=== PATIENT | female | born 1985 | race Caucasian/White ===

== ENCOUNTER 2018-08-20 13:38 | Emergency (ER) | payer OTHER, MEDICAID, SELFPAY ==
[2018-08-20] VITALS (55 sets, daily range): BP systolic 95–149; BP diastolic 55–95; PULSE 63–130; RESP 14–41; TEMP 36.7–36.8; O2SAT 95–100
[2018-08-20] MEDS: Normal Saline 1,000 ML 1000 ML IV ×2 (13:48→14:28)
[2018-08-20] MEDS: methylPREDNISolone SUCC 125 MG VIAL IVP (13:48)
[2018-08-20] MEDS: diphenhydrAMINE 50 MG/ML VIAL IVP (13:48)
--- NOTE | 2018-08-20 13:53 | DI.RAD_ITS ---
SYMPTOMS/DIAGNOSIS: ACUTE ONSET OF SHORTNESS OF BREATH CHEST X-RAY, PA AND LATERAL: Comparison is 07/22/16. The heart is normal in size. The lungs are clear. The mediastinal structures and pleura appear intact. IMPRESSION: Normal chest.
--- NOTE | 2018-08-20 13:56 | ED.GENADUL_ITS ---
Discharge Plan Disposition Patient Disposition: HOME Condition: Improving Discharge Details Chief Complaint: Allergic Clinical Impression: Acute anaphylaxis Primary Care Provider: Candelaria Harden ED Provider: Sherif Jiménez Home Meds and New Rx's Prescriptions: New epinephrine [EpiPen 2-Benny] 0.3 mg/0.3 mL auto-injector 0.3 mg IM ONCE Qty: 2 RF: 0 No Action ibuprofen 800 MG tablet 800 mg PO TID PRN (Reason: Pain Or Fever) Qty: 30 RF: 0 Discharge Instructions Instructions: General Allergic Reaction (ED) Additional Instructions: Please f/u with your PCP in the next two weeks for evaluation of possible allergies and post ED visit for anaphylactic reaction to Aleve. Stand Alone Forms: Work Release Referrals: Candelaria Harden [Primary Care Provider] - 2 weeks Medical Decision Making Will initiate anaphylaxis protocol and add cardiac panel, UA, chest x-ray and UDS. Pt feeling much better after the medications. Resting comfortably with at bedside. Labs consistent with allergic reaction. Negative Trop. Pt monitored all after noon over four hrs. Second trop unchanged. Patient reports feeling much better. I apprised her of the lab work, chest x-ray and negative trops. Advised to f/u with PCP to evaluate causes of anaphylaxis. I advised no more Aleve as this is suspect causes of todays event. I prescribed her Epipen. Advised to return to ED if symptoms return or worsen. Imaging Data Radiologic Study: Imaging: X-Ray My impression: No acute pathology Radiologist's impression: No acute findings. Lab Data Lab results narrative: Lab reviewed by myself. Abnormalities noted consistent with Anaphylaxis. No acute intervention required. ECG Data Interpretation: Reviewed by Dr. Gonzales and I. Sinus tachy cardia with flipped T' s. No acute ST changes. HPI General Mode of arrival: ambulatory . Date/Time Provider Initiated Documentation: 08/20/18 13:51 . Limitations to Documentation: no limitations . Information obtained by: patient and family () . History of Present Illness 32 year old F presents to the emergency department with the chief complaint of Allergic reaction, HPI Narrative: 32 y/o female here with c/o anaphylaxis reaction to Aleve. [employer] she took an Aleve for CLEARY on her way home from [facility]. Almost immediately she felt itchiness in her hands. By the time she got to [place] she noticed hives on her arms and felt sob, itchy, and began sweating. Her stated he brought her directly here and she vomited all the way here. She denies any allergies other than pineapple. She has taken Aleve in the past without complications. She had a bagel this morning and nothing else. Related Data Home Medications Medication Instructions Recorded Confirmed ibuprofen 800 mg PO TID PRN #30 tablet 01/05/16 07/31/17 epinephrine [EpiPen 2-Benny] 0.3 mg IM ONCE #2 each 08/20/18 Previous Rx's Medication Instructions Recorded ibuprofen 800 mg PO TID PRN #30 tablet 01/05/16 epinephrine [EpiPen 2-Benny] 0.3 mg IM ONCE #2 each 08/20/18 Allergies Allergy/AdvReac Type Severity Reaction Status Date / Time No Known Drug Allergies Allergy Unknown none Unverified 07/31/17 15:52 pineapple AdvReac Unverified 07/31/17 15:52 General Stated Complaint: Allergic HALEY: 2 Review of Systems Eyes Reports system reviewed and no additional complaints, except as docu ENT Reports throat swelling Cardiovascular Reports system reviewed and no additional complaints, except as docu Respiratory Reports wheezing and Reports other (SOB) Gastrointestinal Reports nausea and Reports vomiting Integumentary/Breasts Reports other (Hives) Allergic/Immunologic Reports urticaria, Reports throat swelling and Reports wheezing PFSH Medical History GDM, class A2 Post- depression Social History Smoking/Tobacco Use Status: Former Tobacco Use Surgical History Cervical Procedure (~2006) section (01/17/05) Cholecystectomy (07/22/16) Ligation of fallopian tube (07/10/15) Exam Const General: cooperative, acute distress mild, anxious and diaphoretic Nutritional Appearance: well nourished Orientation: alert, awake and oriented x3 HENMT Head: normal to inspection Ears: hearing grossly normal bilaterally, external ears normal and TM's normal bilaterally General nose exam: external nose normal and nares normal Face and sinus: normal facial exam and other (pale) Mouth: oral mucosae normal, lip normal, tongue normal, oropharynx normal and moist mucous membranes Teeth and gingiva: dentition normal Throat: posterior oropharynx normal Eyes General: appearance normal, both eyes and all related structures Pupils: PERRL EOM: EOM intact bilaterally Neck Neck: normal visual inspection, full ROM and no lymphadenopathy Resp Effort & Inspection: normal respiratory effort Auscultation: clear to auscultation bilaterally Cardio Rate: tachycardic Rhythm: regular rhythm GI Inspection: normal to inspection Palpation: soft and nontender Auscultation: normal bowel sounds Back/Spine/Pelvis Back: no CVA tenderness and No back tenderness Skin General skin exam: no rashes or lesions noted Neuro General: alert, awake and oriented x3 Extrem General: normal to inspection, full ROM and normal capillary refill Psych Appearance: grossly normal Mood: congruent mood Affect: normal affect Attitude: cooperative Thought Process: normal Thought Content: normal Insight: insight good Judgment: judgment good Course Vital Signs Temperature 36.8 C 08/20/18 13:51 Pulse 130 H 08/20/18 13:51 Respiratory Rate 30 H 08/20/18 13:51 Blood Pressure 135/80 08/20/18 13:51 Pulse Oximetry 96 08/20/18 13:51 Temperature 36.8 C 08/20/18 13:51 Temperature Source Temporal Artery Scan 08/20/18 13:51 Pulse 130 H 08/20/18 13:51 Respiratory Rate 30 H 08/20/18 13:51 Blood Pressure 135/80 08/20/18 13:51 Blood Pressure Position Supine 08/20/18 13:51 Pulse Oximetry 96 08/20/18 13:51 Oxygen Delivery Method Room Air 08/20/18 13:51 Oxygen Flow Rate 0 08/20/18 13:51
[2018-08-20 14:18] LABS: HCT 45.6 % (36.0-46.0); HGB 15.5 g/dL (12.0-15.5); Mean Corpuscular Hemoglobin 29.6 pg (27.0-33.0); Mean Corpuscular Volume 87.2 fL (80-95); Mean Platelet Volume 10.9 fL (8.0-11.0); Platelet Count 374 x1000/uL (130-400); RBC 5.23 m/cumm (4.00-5.20); RBC Distribution Width 13.4 % (11.7-14.6); White Blood Cell Count 13.03 k/cumm (4.4-10.8)
[2018-08-20 14:36] LABS: ALT 24 U/L (12-78); AST 14 U/L (15-37); Albumin 3.9 g/dL (3.4-5.0); Alkaline Phosphatase 94 U/L (46-116); Anion Gap 16.9 mmol/L (3-11); BUN 12 mg/dL (7-18); Bilirubin, Total 0.5 mg/dL (0.2-1.0); CO2 17.1 mmol/L (21.0-32.0); CREATININE 1.05 mg/dL (0.55-1.02); Calcium 9.3 mg/dL (8.5-10.1); Chloride 102 mmol/L (98-107); Glucose 138 mg/dL (70-100); Magnesium 1.8 mg/dL (1.8-2.4); Potassium 3.8 mmol/L (3.5-5.1); Sodium 136 mmol/L (136-145); Total Protein 7.5 g/dL (6.4-8.2); Troponin I < 0.02 ng/mL (0.00-0.06)
--- NOTE | 2018-08-20 14:36 | NUR.NOTE ---
Provider notified. Pt states discoloration to the hands Nursing Note:
[2018-08-20 14:46] LABS: Absolute Lymphocyte Count 4.95 k/cumm (1.2-3.4); Absolute Monocyte Count 0.26 k/cumm (0.11-0.7); Absolute Neutrophil Count 7.82 k/cumm (1.2-6.7); Atypical Lymphocytes % 7
[2018-08-20 14:47] LABS: Diff Comment Manual Differential; RBC Morphology Normal
--- NOTE | 2018-08-20 15:28 | DI.VRAD_ITS ---
EXAM: XR Chest, 2 Views EXAM DATE/TIME: 08/20/2018 1:55 PM CLINICAL HISTORY: 32 years old, female; Signs and symptoms; Shortness of breath; Patient HX: Acute onset of SOB TECHNIQUE: XR of the chest, 2 views. COMPARISON: CR CHEST 2 VIEWS PA,LAT 07/22/2016 12:19 PM FINDINGS: Lungs: Unremarkable. No consolidation. Pleural space: Unremarkable. No pleural effusion. No pneumothorax. Heart/Mediastinum: Unremarkable. No cardiomegaly. Bones/joints: Unremarkable. IMPRESSION: No acute findings. Dictated and Authenticated by: Aileen Rogers MD. Ordering:NICOLA MACEDO MD
[2018-08-20 17:33] LABS: Bilirubin Negative (Negative); Blood Negative (Negative); Clarity Clear; Glucose 500 mg/dL (Negative); Ketones Trace mg/dL (Negative); Leukocyte Esterase Negative (Negative); Nitrite Negative (Negative); Urobilinogen 0.2 EU/dL (Up TO 0.2)
[2018-08-20 17:36] LABS: *AMPHETAMINES SCREEN URINE Negative (Negative); *BARBITURATES SCREEN URINE Negative (Negative); *BENZODIAZEPINES SCREEN URINE Negative (Negative); Cannabinoids THC Negative (Negative); Cocaine Screen,Urine Negative (Negative); METHADONE URINE SCREEN Negative (Negative); OPIATES URINE SCREEN Negative (Negative)
[2018-08-20 17:43] LABS: Tricyclic Antidepressants Negative (Negative)
[2018-08-20 18:35] LABS: Troponin I < 0.02 ng/mL (0.00-0.06)
--- NOTE | 2018-08-21 09:43 | NUR.NOTE ---
Nursing Note: Patient called stating that this morning her face has become very red and that she is getting hives on her cheeks. She wanted to know if she should return. Per the note in the chart it stated if symptoms return or get worse return. She was informed of this and stated she would return. Nel Zabala.
== END 2018-08-20 19:36 | disposition home or self-care (01) ==
PROVIDERS: Emergency Provider Nurse Practitioner Family; PCP Nurse Practitioner
DX: T88.6XXA Anaphylactic reaction due to adverse effect of correct drug or medicament properly administered, initial encounter (principal); T39.315A Adverse effect of propionic acid derivatives, initial encounter; R00.0 Tachycardia, unspecified
CPT/HCPCS: 36415; 80053; 80307; 93005; 96361; 96372; 96374; 96375; 99285; 71046; 81003; 83735; 84484; 85025; 93010; J0171; J2930

== ENCOUNTER 2018-08-21 10:32 | Emergency (ER) | payer OTHER, MEDICAID, SELFPAY ==
[2018-08-21] VITALS (20 sets, daily range): BP systolic 108–132; BP diastolic 71–87; PULSE 69–93; RESP 16–24; TEMP 36.4; O2SAT 97–100
--- NOTE | 2018-08-21 11:10 | W.ED.GENAD ---
Discharge Plan Disposition Patient Disposition: HOME Condition: Stable Discharge Details Chief Complaint: Allergic Clinical Impression: Allergic reaction Primary Care Provider: Candelaria Harden ED Provider: Faiza Allison Home Meds and New Rx's Prescriptions: New prednisone 50 mg tablet 50 mg PO DAILY Qty: 3 RF: 0 Continue ibuprofen 800 MG tablet 800 mg PO TID PRN (Reason: Pain Or Fever) Qty: 30 RF: 0 epinephrine [EpiPen 2-Benny] 0.3 mg/0.3 mL auto-injector 0.3 mg IM ONCE Qty: 2 RF: 0 Discharge Instructions Instructions: Prednisone (By mouth), General Allergic Reaction (ED) Additional Instructions: Please return immediately to the emergency department if you develop any new or worsening symptoms or if you become otherwise concerned. It is extremely important that you make an appointment to be seen by your primary care doctor within the next 1-2 weeks and follow-up for this visit. Referrals: Candelaria Harden [Primary Care Provider] - Discharge Data Discharge Date/Time-TO BE ENTERED AT DEPARTURE: 08/21/18 13:35 Medical Decision Making Nellie Calle is a 32-year-old woman without history of major medical problems who was seen in the emergency department yesterday for anaphylactic reaction, presumably to Aleve, now returning to the emergency department with recurrence of throat tightness this morning. Benign exam. Patient is well and nontoxic-appearing, the oropharynx is normal without edema, and lungs are clear to auscultation bilaterally. Concern for possible rebound allergic reaction as steroid dosing wears off. Plan for IV Benadryl, Pepcid, Solu-Medrol, saline, telemetry. Will monitor. Pt reassessed. Reports that she feels much better after meds, back to baseline without throat tightness or tongue symptoms. Plan for Rx prednisone. Lengthy discussion with Pt re: RTED precautions, epipen use, and importance of outpt f/u with PCP. She is amenable to the plan. Medical Records Medical records reviewed: Yes I reviewed the patient's medical records. HPI General Mode of arrival: ambulatory. Date/Time Provider Initiated Documentation: 08/21/18 10:52. Limitations to Documentation: no limitations. Information obtained by: patient, RN notes reviewed and old records reviewed. HPI Narrative: Nellie Calle is a 32-year-old woman without reported major medical problems presenting to the emergency department with throat tightness after allergic reaction yesterday. Patient reports that she was seen here yesterday for allergic reaction. She reports that she had throat tightness difficulty breathing and vomiting along with hives and itching after taking Aleve 30 minutes prior to onset of symptoms. She received IM epi, IV steroids, Benadryl, and was watched in the emergency department for 4 hours. She was not discharged home with p.o. prednisone. Patient reports that this morning, around 630 she noticed that her throat seemed somewhat tight, after having complete resolution of symptoms yesterday in the emergency department. She also noticed mild hives under her eyes bilaterally. Patient reports that her throat tightness has not changed since onset this morning, although the hives around her eyes have resolved. Patient reports as we are speaking that the left side of her tongue also is starting to feel tingly. She denies swelling, shortness of breath, nausea/vomiting. No recent illnesses. Was in her usual state of health other than being tired after discharge from the emergency department last night. Has not eaten this morning. Related Data Home Medications Medication Instructions Recorded Confirmed ibuprofen 800 mg PO TID PRN #30 tablet 01/05/16 08/21/18 epinephrine [EpiPen 2-Benny] 0.3 mg IM ONCE #2 each 08/20/18 08/21/18 prednisone 50 mg PO DAILY #3 tab 08/21/18 Previous Rx's Medication Instructions Recorded ibuprofen 800 mg PO TID PRN #30 tablet 01/05/16 epinephrine [EpiPen 2-Benny] 0.3 mg IM ONCE #2 each 08/20/18 prednisone 50 mg PO DAILY #3 tab 08/21/18 Allergies Allergy/AdvReac Type Severity Reaction Status Date / Time No Known Drug Allergies Allergy Unknown none Unverified 07/31/17 15:52 naproxen [From Aleve] Allergy Unverified 08/21/18 10:43 pineapple AdvReac Unverified 07/31/17 15:52 aleve Allergy Uncoded 08/21/18 10:43 General Stated Complaint: Allergic HALEY: 4 Review of Systems Review of Systems Constitutional: denies fevers Eyes: denies eye pain ENT: denies facial pain, dental pain, sore throat, reports throat tightness and tongue tingling Cardiovascular: denies chest pain, edema Respiratory: denies SOB, cough GI: denies abdominal pain, vomiting, diarrhea : denies flank pain MSK: denies back pain, neck pain, arthralgias, myalgias Skin: denies rash Neuro: denies headaches, lightheadedness, weakness [facility] Medical History GDM, class A2 Post- depression Social History Smoking/Tobacco Use Status: Former Tobacco Use Surgical History Cervical Procedure (~2006) section (01/17/05) Cholecystectomy (07/22/16) Ligation of fallopian tube (07/10/15) Exam Narrative Exam Narrative: Constitutional: well and [id number], pleasant, conversing normally HENT: head atraumatic, normocephalic normal inspection, mucous membranes moist, normal oropharynx without apparent edema Eyes: conjunctiva normal, sclera normal, pupils 3mm b/l Neck: no stridor, normal ROM, trachea midline Chest: normal inspection Resp: normal work of breathing, LCTAB Cardio: normal rate, normal rhythm, no murmur appreciated Back: normal inspection, no rash Skin: warm, dry, normal color, no rash Neuro: alert, not altered, grossly non-focal, normal tone Ext: no edema Psych: normal mood, normal affect, normal behavior Course Vital Signs Temperature 36.4 C L 08/21/18 10:40 Pulse 93 H 08/21/18 10:40 Respiratory Rate 16 08/21/18 10:40 Blood Pressure 118/81 08/21/18 10:40 Pulse Oximetry 100 08/21/18 10:40 Temperature 36.4 C L 08/21/18 10:40 Temperature Source Skin 08/21/18 10:40 Pulse 93 H 08/21/18 10:40 Respiratory Rate 16 08/21/18 10:40 Respiratory Effort Non-Labored 08/21/18 10:44 Respiratory Pattern Normal 08/21/18 10:44 Blood Pressure 118/81 08/21/18 10:40 Blood Pressure Position Sitting 08/21/18 10:40 Pulse Oximetry 100 08/21/18 10:40 Oxygen Delivery Method Room Air 08/21/18 10:40 Oxygen Flow Rate 0 08/21/18 10:40 Pain Level 3 08/21/18 10:40
[2018-08-21] MEDS: Normal Saline 1,000 ML 1000 ML IV (11:20)
[2018-08-21] MEDS: methylPREDNISolone SUCC 125 MG VIAL IVP (11:20)
[2018-08-21] MEDS: Famotidine 20 MG/2 ML VIAL IV (11:35)
[2018-08-21] MEDS: diphenhydrAMINE 50 MG/ML VIAL IVP (11:55)
--- NOTE | 2018-08-21 11:58 | ED.GENADUL_ITS ---
Discharge Plan Disposition Patient Disposition: HOME Condition: Stable Discharge Details Chief Complaint: Allergic Clinical Impression: Allergic reaction Primary Care Provider: Candelaria Harden ED Provider: Faiza Allison Home Meds and New Rx's Prescriptions: New prednisone 50 mg tablet 50 mg PO DAILY Qty: 3 RF: 0 Continue ibuprofen 800 MG tablet 800 mg PO TID PRN (Reason: Pain Or Fever) Qty: 30 RF: 0 epinephrine [EpiPen 2-Benny] 0.3 mg/0.3 mL auto-injector 0.3 mg IM ONCE Qty: 2 RF: 0 Discharge Instructions Instructions: Prednisone (By mouth), General Allergic Reaction (ED) Additional Instructions: Please return immediately to the emergency department if you develop any new or worsening symptoms or if you become otherwise concerned. It is extremely important that you make an appointment to be seen by your primary care doctor within the next 1-2 weeks and follow-up for this visit. Referrals: Candelaria Harden [Primary Care Provider] - Discharge Data Discharge Date/Time-TO BE ENTERED AT DEPARTURE: 08/21/18 13:35 Medical Decision Making Nellie Calle is a 32-year-old woman without history of major medical problems who was seen in the emergency department yesterday for anaphylactic reaction, presumably to Aleve, now returning to the emergency department with recurrence of throat tightness this morning. Benign exam. Patient is well and nontoxic- appearing, the oropharynx is normal without edema, and lungs are clear to auscultation bilaterally. Concern for possible rebound allergic reaction as steroid dosing wears off. Plan for IV Benadryl, Pepcid, Solu-Medrol, saline, telemetry. Will monitor. Pt reassessed. Reports that she feels much better after meds, back to baseline without throat tightness or tongue symptoms. Plan for Rx prednisone. Lengthy discussion with Pt re: RTED precautions, epipen use, and importance of outpt f/ u with PCP. She is amenable to the plan. Medical Records Medical records reviewed: Yes I reviewed the patient's medical records. HPI General Mode of arrival: ambulatory . Date/Time Provider Initiated Documentation: 08/21/18 10:52 . Limitations to Documentation: no limitations . Information obtained by: patient, RN notes reviewed and old records reviewed . HPI Narrative: Nellie Calle is a 32-year-old woman without reported major medical problems presenting to the emergency department with throat tightness after allergic reaction yesterday. Patient reports that she was seen here yesterday for allergic reaction. She reports that she had throat tightness difficulty breathing and vomiting along with hives and itching after taking Aleve 30 minutes prior to onset of symptoms. She received IM epi, IV steroids, Benadryl, and was watched in the emergency department for 4 hours. She was not discharged home with p.o. prednisone. Patient reports that this morning, around 630 she noticed that her throat seemed somewhat tight, after having complete resolution of symptoms yesterday in the emergency department. She also noticed mild hives under her eyes bilaterally. Patient reports that her throat tightness has not changed since onset this morning, although the hives around her eyes have resolved. Patient reports as we are speaking that the left side of her tongue also is starting to feel tingly. She denies swelling, shortness of breath, nausea/vomiting. No recent illnesses. Was in her usual state of health other than being tired after discharge from the emergency department last night. Has not eaten this morning. Related Data Home Medications Medication Instructions Recorded Confirmed ibuprofen 800 mg PO TID PRN #30 tablet 01/05/16 08/21/18 epinephrine [EpiPen 2-Benny] 0.3 mg IM ONCE #2 each 08/20/18 08/21/18 prednisone 50 mg PO DAILY #3 tab 08/21/18 Previous Rx's Medication Instructions Recorded ibuprofen 800 mg PO TID PRN #30 tablet 01/05/16 epinephrine [EpiPen 2-Benny] 0.3 mg IM ONCE #2 each 08/20/18 prednisone 50 mg PO DAILY #3 tab 08/21/18 Allergies Allergy/AdvReac Type Severity Reaction Status Date / Time No Known Drug Allergies Allergy Unknown none Unverified 07/31/17 15:52 naproxen [From Aleve] Allergy Unverified 08/21/18 10:43 pineapple AdvReac Unverified 07/31/17 15:52 aleve Allergy Uncoded 08/21/18 10:43 General Stated Complaint: Allergic HALEY: 4 Review of Systems Review of Systems Constitutional: denies fevers Eyes: denies eye pain ENT: denies facial pain, dental pain, sore throat, reports throat tightness and tongue tingling Cardiovascular: denies chest pain, edema Respiratory: denies SOB, cough GI: denies abdominal pain, vomiting, diarrhea : denies flank pain MSK: denies back pain, neck pain, arthralgias, myalgias Skin: denies rash Neuro: denies headaches, lightheadedness, weakness [facility] Medical History GDM, class A2 Post- depression Social History Smoking/Tobacco Use Status: Former Tobacco Use Surgical History Cervical Procedure (~2006) section (01/17/05) Cholecystectomy (07/22/16) Ligation of fallopian tube (07/10/15) Exam Narrative Exam Narrative: Constitutional: well and [id number]-nyqyzjmuv, pleasant, conversing normally HENT: head atraumatic, normocephalic normal inspection, mucous membranes moist, normal oropharynx without apparent edema Eyes: conjunctiva normal, sclera normal, pupils 3mm b/l Neck: no stridor, normal ROM, trachea midline Chest: normal inspection Resp: normal work of breathing, LCTAB Cardio: normal rate, normal rhythm, no murmur appreciated Back: normal inspection, no rash Skin: warm, dry, normal color, no rash Neuro: alert, not altered, grossly non-focal, normal tone Ext: no edema Psych: normal mood, normal affect, normal behavior Course Vital Signs Temperature 36.4 C L 08/21/18 10:40 Pulse 93 H 08/21/18 10:40 Respiratory Rate 16 08/21/18 10:40 Blood Pressure 118/81 08/21/18 10:40 Pulse Oximetry 100 08/21/18 10:40 Temperature 36.4 C L 08/21/18 10:40 Temperature Source Skin 08/21/18 10:40 Pulse 93 H 08/21/18 10:40 Respiratory Rate 16 08/21/18 10:40 Respiratory Effort Non-Labored 08/21/18 10:44 Respiratory Pattern Normal 08/21/18 10:44 Blood Pressure 118/81 08/21/18 10:40 Blood Pressure Position Sitting 08/21/18 10:40 Pulse Oximetry 100 08/21/18 10:40 Oxygen Delivery Method Room Air 08/21/18 10:40 Oxygen Flow Rate 0 08/21/18 10:40 Pain Level 3 08/21/18 10:40
== END 2018-08-21 13:35 | disposition home or self-care (01) ==
PROVIDERS: Emergency Provider Student in an Organized Health Care Education/Training Program; PCP Nurse Practitioner
DX: R09.89 Other specified symptoms and signs involving the circulatory and respiratory systems (principal); L50.0 Allergic urticaria; T39.315A Adverse effect of propionic acid derivatives, initial encounter
CPT/HCPCS: 96361; 96374; 96375; 99284; J1200; J2930

== ENCOUNTER 2018-10-02 18:08 | Outpatient (REF) | payer MEDICAID, SELFPAY ==
--- NOTE | 2018-10-02 15:40 | PAPFT_PTH ---
PATIENT: Nellie Calle LOC: [facility] U#:[id number] AGE/SX: 33/F ROOM: RE10/02/[address]: Lizbeth Ortiz : 1985 BED: DIS: 10/02/2018 SPEC #: [id number] RECD: 10/02/18 18:30 STATUS: ANTONIOCheryl REQ #: [id number] CANDICE: 10/02/18 15:[address]: Lizbeth Ortiz [facility]PT[facility] Cytology RECD BY: Geetha Johnson ENTERED: 10/02/18 18:31 SP TYPE: PAPFT OTHR DR: Candelaria Harden Tissues: 1 - CX/ENDOCX FOR PAP SMEARS Procedures: PAP THIN PREP/[facility] Screening HPV DNA PROBE Comments: [id number]
[2018-10-04 15:18] LABS: Chlamydia Result Negative; GC Result Negative; Specimen Description CERVIX
== END 2018-10-02 18:28 ==
LOC: LBN 18:08
PROVIDERS: PCP Nurse Practitioner; Visit Provider Obstetrics & Gynecology Gynecology
DX: Z11.3 Encounter for screening for infections with a predominantly sexual mode of transmission (principal); Z12.4 Encounter for screening for malignant neoplasm of cervix; Z11.51 Encounter for screening for human papillomavirus (HPV)
CPT/HCPCS: 87491; 87591; 88142; 87624

== ENCOUNTER 2018-11-30 16:35 | Outpatient (REF) | payer OTHER, MEDICAID, SELFPAY ==
--- NOTE | 2018-11-30 14:20 | ENDO_PTH ---
PATIENT: Nellie Calle LOC: [facility] U#:[id number] AGE/SX: 33/F ROOM: RE11/30/[address]: Lizbeth Ortiz : 1985 BED: DIS: 11/30/2018 SPEC #: [id number] RECD: 11/30/18 17:59 STATUS: BENOIT REYamileth #: [id number] CANDICE: 11/30/18 14:[address]: Lizbeth Ortiz DEPT: Surgical Specimen RECD BY: Geetha Johnson ENTERED: 11/30/18 18:00 SP TYPE: Endo OTHR DR: Candelaria Harden Tissues: 1 - ENDOCERVICAL BX/CURRETTE Procedures: GROSS AND MICRO LEVEL 4 Comments: [id number]
== END 2018-11-30 16:55 ==
LOC: LBN 16:35
PROVIDERS: PCP Nurse Practitioner; Visit Provider Obstetrics & Gynecology Gynecology
DX: N87.0 Mild cervical dysplasia (principal); R87.612 Low grade squamous intraepithelial lesion on cytologic smear of cervix (LGSIL); B97.7 Papillomavirus as the cause of diseases classified elsewhere
CPT/HCPCS: 88305

== ENCOUNTER 2020-04-27 17:17 | Emergency (ER) | payer OTHER, MEDICAID, SELFPAY ==
[2020-04-27 17:23] VITALS: BP 131/97; PULSE 87; RESP 18; TEMP 36.2; O2SAT 99
--- NOTE | 2020-04-27 17:27 | ED.GENADUL_ITS ---
Discharge Plan Disposition Patient Disposition: HOME Condition: Fair Discharge Details Chief Complaint: DentalOral Clinical Impression: Dental infection Primary Care Provider: Candelaria Harden ED Provider: Anne Muro Home Meds and New Rx's Prescriptions: New penicillin V potassium 500 mg tablet 500 mg PO QID Qty: 40 RF: 0 Continued epinephrine [EpiPen 2-Benny] 0.3 mg/0.3 mL auto-injector 0.3 mg IM ONCE Qty: 2 RF: 0 Discharge Instructions Instructions: Dental Abscess (ED) Additional Instructions: Gargle with salt water 3-4 times daily. 1 quart of warm water with 1 teaspoon of salt Can use [id number] acetaminophen and/or ibuprofen as directed, you can alternate the 2 every 3 hours. Please contact your dentist first thing Tuesday morning for follow-up appointment as soon as possible Referrals: Candelaria Harden [Primary Care Provider] - Medical Decision Making Patient presents with symptoms consistent with dental infection. There is no fluctuant area that appears reasonable for I&D. Posterior pharynx and TM both clear. We will treat with penicillin and will refer to dentist who she states she contacted on Tuesday. HPI General Date/Time Provider Initiated Documentation: 04/27/20 17:27 . Limitations to Documentation: no limitations . Information obtained by: patient . History of Present Illness described as severe, with intensity rated at 10. Quality is described as aching and sharp, and is localized to the mouth (left lower dental). Patient started experiencing this day(s) (3) and it has been constant. No relieving factors improve symptom(s), Eating worsens symptoms . Patient notes no other symptoms.. Patient did receive the following treatments prior to arrival, NSAID Related Data Home Medications Medication Instructions Recorded Confirmed epinephrine [EpiPen 2-Benny] 0.3 mg IM ONCE #2 each 08/20/18 04/27/20 penicillin V potassium 500 mg PO QID #40 tab 04/27/20 Previous Rx's Medication Instructions Recorded epinephrine [EpiPen 2-Benny] 0.3 mg IM ONCE #2 each 08/20/18 penicillin V potassium 500 mg PO QID #40 tab 04/27/20 Allergies Allergy/AdvReac Type Severity Reaction Status Date / Time No Known Drug Allergies Allergy Unknown none Unverified 11/30/18 13:58 naproxen [From Aleve] Allergy Unverified 04/27/20 17:27 pineapple AdvReac Unverified 04/27/20 17:27 aleve Allergy Uncoded 04/27/20 17:27 General Stated Complaint: DentalOral HALEY: 4 Review of Systems Constitutional Constitutional: Denies fever(s) and Reports poor appetite ENT Ears, Nose, Mouth, and Throat: Reports dental pain (left lower) Cardiovascular Cardiovascular: Denies dyspnea Respiratory Respiratory: Denies cough and Denies dyspnea Gastrointestinal Gastrointestinal: Denies nausea Hematologic/Lymphatic Hematologic/Lymphatic: Denies easy bleeding PFSH Medical History Acute calculous cholecystitis (Resolved) Acute tonsillitis (Resolved) GDM, class A2 (Resolved) 2014 Rx with Glyburide. 2hr PP GTT Personal history of cervical dysplasia (Resolved 12/04/13) 2006 - CAPRI III LEEP RX. 09/2018 global directed biopsies____ Post- depression (Resolved) 08/2015 [place] PPDS 16. Rx with Busprione. anxiety (Resolved 10/01/15) pt briefly treated with Buspar. Resolved after 2mo. Declined counseling. Surgical History (Updated 10/02/18 @ 16:20 by Lizbeth Ortiz MD) Cervical Procedure (Resolved ~2006) LEEP section (Resolved 01/17/05) Arrest of dilation at 4cm F. Oxytocin augmentation. 2899gm. Single layer closure 0-Chromic. 07/10/15 Elective RCS at 38w Pt had bilateral fimbriaectomy at time of RCS. Cholecystectomy (Resolved 07/22/16) Ligation of fallopian tube (Resolved 07/10/15) bilateral fimbria removal at time of RCS. Social History (Updated 10/02/18 @ 16:29 by Lizbeth Ortiz MD) Smoking/Tobacco Use Status: Former Tobacco Use Second Hand Exposure: Yes Alcohol Intake: current Alcohol Intake frequency: a few times a month Drug use: Never Substance use type: does not use Household members: children and other Details: Nav. Dating long time friend. 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 PC/S. [place] 2014. RC/S with [employer]. [place]. Female Reproductive History Menstrual control method: permanent sterilization History History 2 Para 2 Hx # Term Pregnancies 2 Multiple births Hx # Pregnancies Ectopic pregnancies AB induced Hx Number of Living Children AB spontaneous Exam Const General: cooperative and acute distress moderate Nutritional Appearance: average body habitus Orientation: alert, awake and oriented x3 HENMT Head: normal to inspection, normocephalic and atraumatic Ears: TM normal on the left Mouth: oral mucosae normal Teeth and gingiva: dentition normal (left 18 missing, pain left 19, not fluctuant, gum red and inflamed) Throat: posterior oropharynx normal Neck Neck: lymphadenopathy (Left submandibular) Resp Effort & Inspection: normal respiratory effort Cardio Rate: regular rate Rhythm: regular rhythm Skin General skin exam: no rashes or lesions noted Neuro General: patient alert, patient awake and patient oriented x3 Extrem General: normal to inspection and full ROM Course Vital Signs Vital signs: Vital Signs Temperature 36.2 C L 04/27/20 17:23 Pulse 87 04/27/20 17:23 Respiratory Rate 18 04/27/20 17:23 Blood Pressure 131/97 H 04/27/20 17:23 Pulse Oximetry 99 04/27/20 17:23 Temperature 36.2 C L 04/27/20 17:23 Temperature Source Temporal Artery Scan 04/27/20 17:23 Pulse 87 04/27/20 17:23 Respiratory Rate 18 04/27/20 17:23 Blood Pressure 131/97 H 04/27/20 17:23 Blood Pressure Position Sitting 04/27/20 17:23 Pulse Oximetry 99 04/27/20 17:23 Oxygen Delivery Method Room Air 04/27/20 17:23 Oxygen Flow Rate 0 04/27/20 17:23 Pain Level 9 04/27/20 17:23
[2020-04-27] MEDS: Penicillin V POTASSIUM 500 MG TAB, 4 TABS/BTL PO (18:00)
[2020-04-27] MEDS: Ketorolac 30 MG/ML VIAL IM (18:00)
== END 2020-04-27 18:10 | disposition home or self-care (01) ==
PROVIDERS: Emergency Provider Nurse Practitioner Acute Care; PCP Nurse Practitioner
DX: R68.84 Jaw pain (principal); R22.0 Localized swelling, mass and lump, head; K04.7 Periapical abscess without sinus
CPT/HCPCS: 96372; 99284; 99283; J1885

== ENCOUNTER 2020-07-28 18:18 | Outpatient (REF) | payer OTHER, MEDICAID, SELFPAY ==
[2020-07-28 21:20] LABS: Abs Immature Grans 0.22 10^3/uL (0.0-0.06); Absolute Basophil Count 0.07 10^3/uL (0.0-0.2); Absolute Eosinophil Count 0.29 10^3/uL (0.0-0.7); Absolute Lymphocyte Count 4.48 10^3/uL (1.2-3.4); Absolute Monocyte Count 0.91 10^3/uL (0.1-0.8); Basophils % 0.4; Eosinophils % 1.7; HCT 46.1 % (36.0-46.0); HGB 15.4 g/dL (11.2-15.7); Immature Grans % 1.3; Lymphocytes % 26.6; MCH 30.3 pg (27.0-33.0); MCHC 33.4 % (32.0-36.0); MCV 90.7 fL (80-95); MPV 9.8 fL (8.0-11.0); Monocytes % 5.4; Neutrophils % 64.6; Nucleated RBC 0 %; Platelet Count 341 10^3/uL (130-400); RBC 5.08 10^6/uL (3.93-5.22); RDW 12.6 % (11.7-14.6); RDW-SD 41.1 fL; WBC 16.84 10^3/uL (4.4-10.8)
[2020-07-28 21:25] LABS: Absolute Neutrophil Count 10.88 10^3/uL (1.2-6.7)
[2020-07-28 22:29] LABS: ESR 10 mm/hr (0-20)
== END 2020-07-28 18:38 ==
LOC: NCHCN 18:18
PROVIDERS: PCP Nurse Practitioner
DX: M54.5 Low back pain (principal); R20.3 Hyperesthesia; R51.9 Headache, unspecified
CPT/HCPCS: 85652; 85025

== ENCOUNTER 2020-07-29 23:18 | Outpatient (CLI) | payer OTHER, MEDICAID, SELFPAY ==
--- NOTE | 2020-07-29 | DI.RAD_ITS ---
EXAM: XR THORACIC SPINE COMPLETE CLINICAL HISTORY: LOW BACK PAIN M54.5 TECHNIQUE: COMPARISON: CR XR LUMBAR SPINE COMPLETE from 07/29/2020 FINDINGS: Three views of the thoracic spine and five views of the lumbar spine were obtained. Note is made of vascular clips in the right upper quadrant consistent prior cholecystectomy. Unremarkable appearance of the vertebral bodies throughout the thoracic and lumbar region. Intervertebral disc spaces appea r well maintained. Minimal hypertrophic spurring of lumbar facet joints may be present. No evidence of spondylolysis or spondylolisthesis. The SI joints appear intact. IMPRESSION: Minimal facet degenerative changes of the lumbar spine. Otherwise unremarkable examination. RADIATION DOSE DELIVERED: Total DLP
== END 2020-07-29 23:38 ==
PROVIDERS: PCP Nurse Practitioner; Visit Provider Internal Medicine
DX: M47.816 Spondylosis without myelopathy or radiculopathy, lumbar region (principal); M54.5 Low back pain
CPT/HCPCS: 72072; 72110

== ENCOUNTER 2021-01-27 09:51 | Emergency (ER) | payer OTHER, MEDICAID, SELFPAY ==
[2021-01-27 09:59] VITALS: BP 132/81; PULSE 102; RESP 22; TEMP 36.5; O2SAT 98
--- NOTE | 2021-01-27 10:15 | DI.CT_ITS ---
EXAM: CT ABDOMEN PELVIS W INDICATION: RLQ, R SI joint pain. COMPARISON: No exams were available for comparison TECHNIQUE: FINDINGS: CT examination of the abdomen and pelvis was performed with a bolus infusion of 100 cc of Omnipaque 3 50. Images obtained through the lung bases are unremarkable. The liver is unremarkable in appearance. The gallbladder has been surgically removed. There is mild prominence of the common hepatic duct whi ch measures up to about 14 millimeters in diameter, this is slightly enlarged for post cholecystectom y patient. Please correlate clinically and with lab values to exclude extrahepatic biliary obstructi on. Pancreas appears normal. Spleen is unremarkable in appearance. Adrenals appear normal. The kidneys are unremarkable with no evidence of hydronephrosis, nephrolithiasis, or renal mass.. Ur inary bladder is nearly empty.. Abdominal aorta is of normal diameter and no major vascular abnormality is seen. No abdominal wall hernia. No abdominal or pelvic adenopathy. There is a 3.4 cm in diameter left ovarian cyst. There is moderate free pelvic fluid. Findings as d escribed may represent a ruptured or leaking ovarian cyst. [employer] structures otherwise appear intact. Urinary bladder is nearly empty. Appendix is normal. No evidence of diverticulitis or bowel obstruction. IMPRESSION: Findings suggesting leaking or ruptured 34 millimeter left ovarian cyst. Prior cholecystectomy, borderline enlarged common hepatic bile duct, please correlate clinically and with lab values. RADIATION DOSE DELIVERED: 694mGy.cm Total DLP 694mGy.cm Total DLP RADIATION OPTIMIZATION: All CT scans at this facility use at least one of these dose optimization te chniques: automated exposure control; mA and/or kV adjustment per patient size (includes targeted exa ms where dose is matched to clinical indication); or iterative reconstruction.
--- NOTE | 2021-01-27 10:18 | W.ED.GENAD ---
Discharge Plan Disposition Patient Disposition: HOME Condition: Improving Discharge Details Clinical Impression: Low back pain with right-sided sciatica, Rupture of cyst of right ovary Primary Care Provider: Vito Solorzano ED Provider: Mal Newby Home Meds and New Rx's Prescriptions: New prednisone 20 mg tablet 40 mg PO DAILY 5 Days Qty: 10 RF: 0 oxycodone-acetaminophen [Percocet] 5-325 mg tablet 1 tab PO Q6H PRN (Reason: pain) Qty: 7 RF: 0 Continued epinephrine [EpiPen 2-Benny] 0.3 mg/0.3 mL auto-injector 0.3 mg IM ONCE Qty: 2 RF: 0 amitriptyline 25 mg tablet 25 mg PO HS PRNRF: 0 gabapentin 300 mg capsule 300 mg PO HS RF: 0 Discharge Instructions Instructions: Ovarian Cyst (ED), Low Back Strain (ED) Additional Instructions: Please remove Lidoderm patch in 12 hours time, may use further patches available [id number]. Please follow-up with physical therapy. Take prednisone as prescribed. May use Percocet, as needed for breakthrough/severe pain. This medication contains Tylenol and should not be taken in addition to the Tylenol. Return to the emergency department for any acute concerns. Stand Alone Forms: Physical Therapy Referral Medical Decision Making 35-year-old female presents from home. She states that she has had 2 weeks of right low back pain, began on gabapentin 300 mg at night with minimal improvement, now notes 1 day of significant increasing discomfort and pain in the right lower quadrant of her abdomen. She is tachycardic in the pain upon arrival, no fever and normal blood pressure. She is tender in the right lower quadrant, right low back and SI joint and right lateral hip. Differential diagnosis is broad with first consideration of sciatica, must exclude a peritoneal process such as appendicitis, as well as pyelonephritis or renal colic. Patient IV access established, referred for laboratory testing, urinalysis. Patient's laboratories reveal a white count of 12, hematocrit 46, platelets 315. Chemistries reassuring, BUN 7, creatinine 1.1. AST 11, ALT 27, total bili 0.5. Urinalysis unremarkable. Patient referred for CT images which reveal a ruptured ovarian cyst. I do feel this explains her right lower quadrant abdominal pain could additionally she does appear to have presentation and exam consistent with acute sciatica. Patient was given parenteral analgesia and steroids. With this she had some improvement. Able to ambulate. I do feel she may require a small number of narcotic analgesics for home, I consented her for the use of same. Will place her on a burst of steroid and also refer for physical therapy. She is stable and improved, appropriate for outpatient management. HPI General Mode of arrival: ambulatory. Date/Time Provider Initiated Documentation: 01/27/21 09:52. Limitations to Documentation: no limitations. Information obtained by: patient. History of Present Illness 35 year old F presents to the emergency department with the chief complaint of Right lower quadrant and right back pain, described as severe, Quality is described as constant, and is localized to the back, abdomen and right. Patient distal. Patient started experiencing this day(s) and it has been constant. Rest improves symptom(s), Movement worsens symptoms . Patient notes denies chest pain, fever/chills and loss of appetite. Patient did receive the following treatments prior to arrival, other (Tylenol, gabapentin) Related Data Home Medications Medication Instructions Recorded Confirmed epinephrine [EpiPen 2-Benny] 0.3 mg IM ONCE #2 each 08/20/18 01/27/21 amitriptyline 25 mg PO HS PRN 01/27/21 01/27/21 gabapentin 300 mg PO HS 01/27/21 01/27/21 oxycodone-acetaminophen [Percocet] 1 tab PO Q6H PRN #7 tab 01/27/21 prednisone 40 mg PO DAILY 5 Days #10 tab 01/27/21 Previous Rx's Medication Instructions Recorded epinephrine [EpiPen 2-Benny] 0.3 mg IM ONCE #2 each 08/20/18 oxycodone-acetaminophen [Percocet] 1 tab PO Q6H PRN #7 tab 01/27/21 prednisone 40 mg PO DAILY 5 Days #10 tab 01/27/21 Allergies Allergy/AdvReac Type Severity Reaction Status Date / Time No Known Drug Allergies Allergy Unknown none Unverified 11/30/18 13:58 naproxen [From Aleve] Allergy Unverified 04/27/20 17:27 pineapple AdvReac Unverified 04/27/20 17:27 aleve Allergy Uncoded 04/27/20 17:27 General Stated Complaint: Nk/Back Pain HALEY: 3 Review of Systems Narrative: No change to urine, no motor weakness, increased pain with ambulation. Denies fall or injury. 6 systems reviewed and otherwise negative [facility] Medical History Acute calculous cholecystitis Acute tonsillitis GDM, class A2 2014 Rx with Glyburide. 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 09/2018 global directed biopsies____ Post- depression 08/2015 [place] PPDS 16. Rx with Busprione. anxiety (10/01/15) pt briefly treated with Buspar. Resolved after 2mo. Declined counseling. Surgical History (Updated 10/02/18 @ 16:20 by Lizbeth Ortiz MD) Cervical Procedure (~2006) LEEP section (01/17/05) Arrest of dilation at 4cm F. Oxytocin augmentation. 2899gm. Single layer closure 0-Chromic. 07/10/15 Elective RCS at 38w Pt had bilateral fimbriaectomy at time of RCS. Cholecystectomy (07/22/16) Ligation of fallopian tube (07/10/15) bilateral fimbria removal at time of RCS. Social History Smoking/Tobacco Use Status: Former Tobacco Use Second Hand Exposure: Yes Smoking risk assessment performed?: Yes Alcohol Intake: current Alcohol Intake frequency: a few times a month Drug use: Never Substance use type: does not use Household members: children and other Details: Nav. Dating long time friend. 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 Pleasant, well groomed, interactive. HEAD: Normocephalic, atraumatic ENT: Mucous membranes moist, oropharynx unremarkable, External ear exam unremarkable EYES: PERRL, EOMI NECK: Full ROM, no ANDERSON, no menigismus CHEST/RESP: Nontender, clear to auscultation bilateral, no wheeze/rhonchi/rales CARDIOVASCULAR: Regular, borderline tachycardic, no murmur, rub risa. 2+ Rad pulse bilateral ABDOMEN: Soft, tender in the right lower quadrant, no mass. +Bowel sounds Back: Tender right SI joint and right lateral hip to palpation. EXT: Full ROM, no edema, no rash. Range of motion right limited by pain. Sensation intact throughout including saddle distribution. Neuro: Grossly normal neurologic exam, conversant, interactive. Psych: Speech fluent, thoughts congruent, affect normal Course Vital Signs Vital signs: Vital Signs Temperature 36.5 C 01/27/21 09:59 Pulse 102 H 01/27/21 09:59 Respiratory Rate 22 01/27/21 09:59 Blood Pressure 132/81 01/27/21 09:59 Pulse Oximetry 98 01/27/21 09:59 Temperature 36.5 C 01/27/21 09:59 Temperature Source Skin 01/27/21 09:59 Pulse 102 H 01/27/21 09:59 Respiratory Rate 22 01/27/21 09:59 Respiratory Effort Non-Labored 01/27/21 10:06 Blood Pressure 132/81 01/27/21 09:59 Blood Pressure Position Sitting 01/27/21 09:59 Pulse Oximetry 98 01/27/21 09:59 Oxygen Delivery Method Room Air 01/27/21 09:59 Oxygen Flow Rate 0 01/27/21 09:59 Pain Level 10 01/27/21 10:06
[2021-01-27 10:29] LABS: Abs Immature Grans 0.04 10^3/uL (0.0-0.06); Absolute Basophil Count 0.05 10^3/uL (0.0-0.2); Absolute Eosinophil Count 0.23 10^3/uL (0.0-0.7); Absolute Monocyte Count 0.49 10^3/uL (0.1-0.8); Basophils % 0.4; Eosinophils % 1.9; HGB 15.5 g/dL (11.2-15.7); Immature Grans % 0.3; Lymphocytes % 19.3; MCH 29.6 pg (27.0-33.0); MCHC 33.7 % (32.0-36.0); MPV 9.6 fL (8.0-11.0); Neutrophils % 74.1; Nucleated RBC 0 %; Platelet Count 315 10^3/uL (130-400); RBC 5.23 10^6/uL (3.93-5.22); RDW 12.8 % (11.7-14.6); RDW-SD 41.3 fL; WBC 12.31 10^3/uL (4.4-10.8)
[2021-01-27] MEDS: HYDROmorphone 2 MG/ML VIAL 1 MG IVP (10:30)
[2021-01-27] MEDS: Normal Saline 1,000 ML 125 ML IV (10:30)
[2021-01-27 10:37] LABS: Absolute Lymphocyte Count 2.38 10^3/uL (1.2-3.4); Absolute Neutrophil Count 9.12 10^3/uL (1.2-6.7)
[2021-01-27 10:41] LABS: ALT 27 U/L (14-59); AST 11 U/L (15-37); Albumin 4.3 g/dL (3.4-5.0); Alkaline Phosphatase 95 U/L (46-116); Anion Gap 10.9 mmol/L (3-11); BUN 7 mg/dL (7-18); Bilirubin, Total 0.5 mg/dL (0.2-1.0); CO2 26.1 mmol/L (21.0-32.0); CREATININE 1.1 mg/dL (0.55-1.02); Calcium 9.1 mg/dL (8.5-10.1); Chloride 102 mmol/L (98-107); Glucose 150 mg/dL (74-106); Sodium 139 mmol/L (136-145); Total Protein 8.5 g/dL (6.4-8.2)
[2021-01-27 10:50] LABS: Bilirubin Negative (Negative); Blood Small (Negative); Clarity Cloudy (Clear); Glucose Negative (Negative); Ketones Negative (Negative); Leukocyte Esterase Negative (Negative); Nitrite Negative (Negative); Specific Gravity 1.025 (1.005-1.025); Urobilinogen 0.2 EU/dL (Up TO 0.2); pH 5.5 (5-8)
[2021-01-27 11:07] LABS: Bacteria Negative HPF (Negative); Epithelial Cells Many HPF (Negative); RBC Negative HPF (0-2); WBC 0-2 HPF (0-5)
[2021-01-27] MEDS: Omnipaque 350 MG/ML 100 ML BTL IJ (11:07)
[2021-01-27 11:08] LABS: C & S Indicated? No; Casts Negative LPF (Negative); Crystals Negative HPF (Negative); Mucus Negative (Negative)
[2021-01-27] MEDS: Normal Saline - Diluent 50 ML VIAL IV (11:10)
[2021-01-27] MEDS: Dexamethasone 4 MG/ML VIAL 8 MG IVP (11:50)
[2021-01-27] MEDS: HYDROmorphone 2 MG/ML VIAL 0.5 MG IVP (12:09)
[2021-01-27] MEDS: Lidocaine 5% Patch 1 PATCH TP (12:10)
[2021-01-27 12:31] VITALS: BP 110/69; PULSE 77; RESP 16; TEMP 36.4; O2SAT 98
[2021-01-27 12:50] VITALS: BP 110/69; PULSE 77; RESP 16; O2SAT 98
== END 2021-01-27 12:51 | disposition home or self-care (01) ==
PROVIDERS: Emergency Provider Emergency Medicine; PCP Internal Medicine
DX: M54.41 Lumbago with sciatica, right side (principal); N83.291 Other ovarian cyst, right side
CPT/HCPCS: 80053; 81025; 96361; 96374; 96375; 96376; 99285; 74177; 81003; 81015; 85025; 99284; J1100; J3490

== ENCOUNTER 2021-03-17 15:14 | Outpatient (REF) | payer OTHER, MEDICAID, SELFPAY ==
--- NOTE | 2021-03-17 15:00 | PAPFT_PTH ---
PATIENT: Nellie Calle LOC: [place] U#:[id number] AGE/SX: 35/F ROOM: RE03/17/[address]: Lizbeth Ortiz : 1985 BED: DIS: 03/17/2021 SPEC #: [id number] RECD: 03/17/21 18:25 STATUS: BENOIT REYamileth #: [id number] CANDICE: 03/17/21 15:[address]: Lizbeth Ortiz DEPT: [facility] Cytology RECD BY: Geetha Johnson ENTERED: 03/17/21 18:25 SP TYPE: PAPFT OTHR DR: Vito Solorzano Tissues: 1 - CX/ENDOCX FOR PAP SMEARS Procedures: PAP THIN PREP/UVM Screening HPV DNA PROBE Comments: [id number]
== END 2021-03-17 15:15 | disposition home or self-care (01) ==
LOC: LBN 15:14
PROVIDERS: PCP Internal Medicine; Visit Provider Obstetrics & Gynecology Gynecology
DX: Z12.4 Encounter for screening for malignant neoplasm of cervix (principal); Z87.410 Personal history of cervical dysplasia; Z11.51 Encounter for screening for human papillomavirus (HPV)
CPT/HCPCS: 88142; 87624

== ENCOUNTER 2021-04-08 01:16 | Outpatient (CLI) | payer OTHER, MEDICAID, SELFPAY ==
--- NOTE | 2021-04-08 | DI.MRI_ITS ---
Exam(s) MR LUMBAR SPINE WO EXAM: MR LUMBAR SPINE WO CLINICAL HISTORY: LUMBAR BACK PAIN WITH RADICULOPATHY,M54.16. TECHNIQUE: Multiplanar multisequence MRI of the Lumbar spine was performed. COMPARISON: CR XR LUMBAR SPINE COMPLETE from 07/29/2020 CR XR LUMBAR SPINE COMPLETE from 07/29/2020 FINDINGS: Plain films 07/29/2020 were reviewed Conus medullaris is at normal level. There is no evidence of conus mass nor subjacent clumping of in trathecal nerve roots to suggest arachnoiditis. The distal thecal sac appears unremarkable.There is no evidence of Tarlov intrasacral cysts nor other significant findings within the sacral canal Bones:There are no fractures nor ominous osseous lesions in the lumbar vertebral bodies and visualize d sacrum. With respect to the individual levels... T12-L1: Unremarkable L1-2: Normal disc height and signal. No disc herniation nor central canal stenosis.No foraminal steno sis L2-3: Normal disc height. No disc herniation nor central canal stenosis.No foraminal stenosis.No face t arthropathy. L3-4: Normal disc height. No disc herniation or central canal stenosis.No foraminal stenosis.No face t arthropathy. L4-5: Normal disc height and hydration signal. No disc herniation or central canal stenosis nor fora larry stenosis. No facet arthropathy L5-S1: Mild decreased disc height and signal. There is a posterolateral right disc herniation which extends posteriorly 3 millimeters, is approximately 9 millimeters wide and descends for distance of 6 millimeters behind the right side of S1 vertebral body. This disc protrusion contacts the nerve karina t in the right lateral recess. Disc herniation does not extend into the exiting neural foramen and t here is no true foraminal stenosis at this level. Facets unremarkable without facet arthropathy evid ent at this level. Soft tissues: paraspinal soft tissues appear unremarkable. IMPRESSION: 1. There is a posterolateral right disc protrusion at L5-S1 level as described above. No tight canal stenosis. No foraminal stenosis. 2. Other levels appear unremarkable. 3. There is no significant facet arthropathy in the lumbosacral spinal column. DATA REPOSITORY:
== END 2021-04-08 01:36 ==
PROVIDERS: PCP Internal Medicine; Visit Provider Internal Medicine
DX: M51.17 Intervertebral disc disorders with radiculopathy, lumbosacral region (principal)
CPT/HCPCS: 72148

== ENCOUNTER 2021-06-01 18:43 | Emergency (ER) | payer OTHER, MEDICAID, SELFPAY ==
[2021-06-01 18:51] VITALS: BP 129/90; PULSE 109; RESP 17; TEMP 36.6; O2SAT 97
--- NOTE | 2021-06-01 19:30 | DI.CT_ITS ---
Exam(s) CT ABDOMEN PELVIS W EXAM: CT ABDOMEN PELVIS W CLINICAL HISTORY: RLQ pain. TECHNIQUE: Imaging Protocol: Axial computed tomography images with coronal and sagittal reformatted images were created and reviewed CONTRAST MATERIAL: Intravenous: Omnipaque 350 Contrast volume:94 ml Oral: / no COMPARISON: CT CT ABDOMEN PELVIS W from 01/27/2021 FINDINGS: ABDOMEN: Lung Bases: Normal where visualized. Liver: Normal density. No measurable mass. Gallbladder and biliary tract: Status post cholecystectomy. Pancreas: Normal density, no abnormal calcifications or inflammatory process. Spleen: Normal. Kidneys: Normal size, contour and axis. No radiodense stones or obstructive uropathy. No masses seen. Adrenal glands: No masses seen. Abdominal Aorta: Abdominal portion non-dilated. PELVIS: Bladder: No gross wall thickening. No calculi.No focal mass. Bowel: No obstruction or bowel wall thickening. Appendix normal. Peritoneal cavity: No ascites, collection or mesenteric inflammatory response. Bones: Within normal limits for age. Reproductive organs: Retroverted uterus. Small bilateral ovarian follicles.. Lymph nodes: Unremarkable. Impression: Unremarkable CT scan of the abdomen and pelvis. RADIATION DOSE DELIVERED: 683.58mGy.cm Total DLP DATA REPOSITORY: All CT scans at this facility are submitted to the National Radiology Data Registry (NRDR) Dose Index Registry (DIR) with the [employer] (ACR). RADIATION OPTIMIZATION: All CT scans at this facility use at least one of these dose optimization te chniques: automated exposure control; mA and/or kV adjustment per patient size (includes targeted exa ms where dose is matched to clinical indication); or iterative reconstruction.
[2021-06-01] MEDS: Ondansetron 4 MG/2 ML VIAL IVP (20:16)
[2021-06-01 20:20] LABS: Abs Immature Grans 0.04 10^3/uL (0.0-0.06); Absolute Basophil Count 0.07 10^3/uL (0.0-0.2); Absolute Eosinophil Count 0.26 10^3/uL (0.0-0.7); Absolute Monocyte Count 0.74 10^3/uL (0.1-0.8); Basophils % 0.5; HCT 43.6 % (36.0-46.0); HGB 14.6 g/dL (11.2-15.7); Immature Grans % 0.3; Lymphocytes % 25.3; MCH 29.7 pg (27.0-33.0); MCHC 33.5 % (32.0-36.0); MCV 88.8 fL (80-95); MPV 9.4 fL (8.0-11.0); Monocytes % 5.7; Neutrophils % 66.2; Nucleated RBC 0 %; Platelet Count 270 10^3/uL (130-400); RBC 4.91 10^6/uL (3.93-5.22); RDW 12.5 % (11.7-14.6); RDW-SD 40.7 fL; WBC 13.03 10^3/uL (4.4-10.8)
[2021-06-01 20:21] LABS: Absolute Neutrophil Count 8.63 10^3/uL (1.2-6.7)
[2021-06-01] MEDS: fentaNYL 100 MCG/2 ML VIAL 50 MCG IVP (20:31)
[2021-06-01] MEDS: ACETAMINOPHEN 1,000 MG/100 ML BTL 400 MG IVPB (20:31)
[2021-06-01 20:32] LABS: ALT 26 U/L (14-59); AST 15 U/L (15-37); Albumin 4.1 g/dL (3.4-5.0); Alkaline Phosphatase 84 U/L (46-116); Anion Gap 10.5 mmol/L (3-11); BUN 5 mg/dL (7-18); Bilirubin, Total 0.4 mg/dL (0.2-1.0); CO2 22.5 mmol/L (21.0-32.0); Calcium 9.2 mg/dL (8.5-10.1); Chloride 105 mmol/L (98-107); Glucose 93 mg/dL (74-106); Lipase 101 U/L (73-393); Potassium 3.9 mmol/L (3.5-5.1); Sodium 138 mmol/L (136-145)
[2021-06-01 20:36] LABS: Bilirubin Negative (Negative); Blood Negative (Negative); Clarity Clear (Clear); Glucose Negative (Negative); Ketones Negative (Negative); Leukocyte Esterase Negative (Negative); Nitrite Negative (Negative); Specific Gravity 1.025 (1.005-1.025); Urobilinogen 0.2 EU/dL (Up TO 0.2); pH 5.5 (5-8)
[2021-06-01 20:51] LABS: HCG Qual (Serum) Negative
[2021-06-01] MEDS: Omnipaque 350 MG/ML 100 ML BTL IJ (21:00)
[2021-06-01] MEDS: Normal Saline - Diluent 50 ML VIAL IV (21:02)
[2021-06-01] MEDS: Normal Saline Flush 10 ML SYR IVP (21:03)
--- NOTE | 2021-06-01 22:15 | W.ED.GENAD ---
Discharge Plan Disposition Patient Disposition: HOME Condition: Good Discharge Details Clinical Impression: Rupture of cyst of right ovary Primary Care Provider: Vito Solorzano ED Provider: Geetha Cool Home Meds and New Rx's Prescriptions: No Action epinephrine [EpiPen 2-Benny] 0.3 mg/0.3 mL auto-injector 0.3 mg IM ONCE Qty: 2 RF: 0 pantoprazole 40 mg tablet,delayed release (DR/EC) 40 mg PO DAILY RF: 0 gabapentin 300 mg capsule 300 mg PO HS RF: 0 Discharge Instructions Instructions: Ovarian Cyst (ED) Additional Instructions: Repeat ultrasound in 2-3 cycles at the discretion of your doctor Ibuprofen as needed for pain Take the oxycodone sparingly, this medication is very addictive, and is also constipating Please return with worsening pain, dizziness, weakness, or should you have any new or worsening complaints Medical Decision Making CT scan shows involuting right ovarian cyst, 2 cm, patient is feeling symptomatically improved per radiology interpretation in my review She will need repeat ultrasound in 2-3 cycles She declines any risk of sexually transmitted disease or vaginal discharge She has negative test, she did mild leukocytosis, she will follow up with her doctor regarding this She will return earlier should she have new or worsening complaints She is discharged home in stable condition with stable vitals No clinical evidence of ovarian torsion or appendicitis clinically, urinalysis normal I did give patient several doses of oxycodone, I also discussed risk of addiction associated Medical Records Medical records reviewed: Yes I reviewed the patient's medical records. Lab Data Lab results reviewed: Yes I reviewed the patient's lab results. HPI General Mode of arrival: ambulatory. Date/Time Provider Initiated Documentation: 06/01/21 19:09. Limitations to Documentation: no limitations. Information obtained by: patient. HPI Narrative: 35-year-old female presents with report of abdominal pain for the past 4 days. Denies fever or chills. Has been nauseous without vomiting. Denies chance of . Denies chest pain or shortness of breath. Denies any urinary complaints. Denies history of similar pain in the past. Denies any exacerbating or alleviating factors. Describes the pain as sharp. Related Data Home Medications Medication Instructions Recorded Confirmed epinephrine [EpiPen 2-Benny] 0.3 mg IM ONCE #2 each 08/20/18 06/01/21 gabapentin 300 mg PO HS 01/27/21 06/01/21 pantoprazole 40 mg PO DAILY 06/01/21 06/01/21 Previous Rx's Medication Instructions Recorded epinephrine [EpiPen 2-Benny] 0.3 mg IM ONCE #2 each 08/20/18 Allergies Allergy/AdvReac Type Severity Reaction Status Date / Time No Known Drug Allergies Allergy Unknown none Unverified 11/30/18 13:58 naproxen [From Aleve] Allergy Unverified 06/01/21 18:55 pineapple AdvReac Unverified 06/01/21 18:55 aleve Allergy Uncoded 06/01/21 18:55 General Stated Complaint: Abd Prob HALEY: 3 Review of Systems All systems reviewed & are unremarkable except as noted in HPI and below PFSH Medical History Acute calculous cholecystitis Acute tonsillitis GDM, class A2 2014 Rx with Glyburide. 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 Rx with Busprione. anxiety (10/01/15) pt briefly treated with Buspar. Resolved after 2mo. Declined counseling. Surgical History (Updated 10/02/18 @ 16:20 by Lizbeth Ortiz MD) Cervical Procedure (~2006) LEEP section (01/17/05) Arrest of dilation at 4cm F. Oxytocin augmentation. 2899gm. Single layer closure 0-Chromic. 07/10/15 Elective RCS at 38w Pt had bilateral fimbriaectomy at time of RCS. Cholecystectomy (07/22/16) Ligation of fallopian tube (07/10/15) bilateral fimbria removal at time of RCS. Social History (Updated 03/18/21 @ 11:05 by Lizbeth Ortiz MD) Smoking/Tobacco Use Status: Former Tobacco Use Second Hand Exposure: Yes Smoking risk assessment performed?: Yes Alcohol Intake: former Drug use: Never Substance use type: does not use Household members: children and other Details: Nav. Dating long time friend. 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 Sexually active: Yes (New partner since 06/2018.) Seatbelt use: always Do you feel safe at home: Yes Do you feel safe in your relationship?: Yes Female Reproductive History Menstrual control method: permanent sterilization History History 2 Para 2 Hx # Term Pregnancies 2 Multiple births Hx # Pregnancies Ectopic pregnancies AB induced Hx Number of Living Children AB spontaneous Exam Const Orientation: alert and oriented x3 Eyes Pupils: PERRL Resp Effort & Inspection: normal respiratory effort Cardio Rate: regular rate Rhythm: regular rhythm GI Inspection: normal to inspection Other: Tenderness right lower quadrant, no rebound or guarding, no CVA tenderness Skin General skin exam: no rashes or lesions noted Neuro General: patient alert and patient oriented x3 Extrem Other: Distal pulses intact Course Vital Signs Vital signs: Vital Signs Temperature 36.6 C 06/01/21 18:51 Pulse 109 H 06/01/21 18:51 Respiratory Rate 17 06/01/21 18:51 Blood Pressure 129/90 06/01/21 18:51 Pulse Oximetry 97 06/01/21 18:51 Temperature 36.6 C 06/01/21 18:51 Temperature Source Temporal Artery Scan 06/01/21 18:51 Pulse 109 H 06/01/21 18:51 Respiratory Rate 17 06/01/21 18:51 Respiratory Effort Non-Labored 06/01/21 18:55 Blood Pressure 129/90 06/01/21 18:51 Blood Pressure Position Sitting 06/01/21 18:51 Pulse Oximetry 97 06/01/21 18:51 Oxygen Delivery Method Room Air 06/01/21 18:51 Oxygen Flow Rate 0 06/01/21 18:51 Pain Level 7 06/01/21 20:31 Lab/Test Results Lab/Test Results: Laboratory Tests Range/Units 06/01/21 06/01/21 06/01/21 20:09 20:09 20:09 WBC (4.4-10.8) 10^3/uL 13.03 H RBC (3.93-5.22) 10^6/uL 4.91 Hgb (11.2-15.7) g/dL 14.6 Hct (36.0-46.0) % 43.6 MCV (80-95) fL 88.8 MCH (27.0-33.0) pg 29.7 MCHC (32.0-36.0) % 33.5 RDW (11.7-14.6) % 12.5 Plt Count (130-400) 10^3/uL 270 MPV (8.0-11.0) fL 9.4 Immature Gran % 0.3 Neutrophils % 66.2 Lymphocytes % 25.3 Monocytes % 5.7 Eosinophils % 2.0 Basophils % 0.5 Nucleated RBC % % 0 Absolute Neutrophils (1.2-6.7) 10^3/uL 8.63 H Absolute Lymphocytes (1.2-3.4) 10^3/uL 3.30 Absolute Monocytes (0.1-0.8) 10^3/uL 0.74 Absolute Eosinophils (0.0-0.7) 10^3/uL 0.26 Absolute Basophils (0.0-0.2) 10^3/uL 0.07 Sodium (136-145) mmol/L 138 Potassium (3.5-5.1) mmol/L 3.9 Chloride (98-107) mmol/L 105 Carbon Dioxide (21.0-32.0) mmol/L 22.5 Anion Gap (3-11) mmol/L 10.5 BUN (7-18) mg/dL 5 L Creatinine (0.55-1.02) mg/dL 1.0 Estimated GFR/1.73 m2 (mL/min/1.73m2) >= 60.00 Glucose (74-106) mg/dL 93 Calcium (8.5-10.1) mg/dL 9.2 Total Bilirubin (0.2-1.0) mg/dL 0.4 AST (15-37) U/L 15 ALT (14-59) U/L 26 Alkaline Phosphatase (46-116) U/L 84 Total Protein (6.4-8.2) g/dL 8.0 Albumin (3.4-5.0) g/dL 4.1 Lipase (73-393) U/L 101 Serum HCG, Qual Negative Urine Color (Yellow) Urine Clarity (Clear) Urine pH (5-8) Ur Specific [place] (1.005-1.025) Urine Protein (Negative) mg/dL Urine Ketones (Negative) mg/dL Urine Blood (Negative) Urine Nitrite (Negative) Urine Bilirubin (Negative) Urine Urobilinogen (Up TO 0.2) EU/dL Ur Leukocyte Esterase (Negative) Urine Glucose (Negative) mg/dL Range/Units 06/01/21 20:20 WBC (4.4-10.8) 10^3/uL RBC (3.93-5.22) 10^6/uL Hgb (11.2-15.7) g/dL Hct (36.0-46.0) % MCV (80-95) fL MCH (27.0-33.0) pg MCHC (32.0-36.0) % RDW (11.7-14.6) % Plt Count (130-400) 10^3/uL MPV (8.0-11.0) fL Immature Gran % Neutrophils % Lymphocytes % Monocytes % Eosinophils % Basophils % Nucleated RBC % % Absolute Neutrophils (1.2-6.7) 10^3/uL Absolute Lymphocytes (1.2-3.4) 10^3/uL Absolute Monocytes (0.1-0.8) 10^3/uL Absolute Eosinophils (0.0-0.7) 10^3/uL Absolute Basophils (0.0-0.2) 10^3/uL Sodium (136-145) mmol/L Potassium (3.5-5.1) mmol/L Chloride (98-107) mmol/L Carbon Dioxide (21.0-32.0) mmol/L Anion Gap (3-11) mmol/L BUN (7-18) mg/dL Creatinine (0.55-1.02) mg/dL Estimated GFR/1.73 m2 (mL/min/1.73m2) Glucose (74-106) mg/dL Calcium (8.5-10.1) mg/dL Total Bilirubin (0.2-1.0) mg/dL AST (15-37) U/L ALT (14-59) U/L Alkaline Phosphatase (46-116) U/L Total Protein (6.4-8.2) g/dL Albumin (3.4-5.0) g/dL Lipase (73-393) U/L Serum HCG, Qual Urine Color (Yellow) Yellow Urine Clarity (Clear) Clear Urine pH (5-8) 5.5 Ur Specific [place] (1.005-1.025) 1.025 Urine Protein (Negative) mg/dL Negative Urine Ketones (Negative) mg/dL Negative Urine Blood (Negative) Negative Urine Nitrite (Negative) Negative Urine Bilirubin (Negative) Negative Urine Urobilinogen (Up TO 0.2) EU/dL 0.2 Ur Leukocyte Esterase (Negative) Negative Urine Glucose (Negative) mg/dL Negative POC- Test(urine) Negative
--- NOTE | 2021-06-01 22:21 | DI.VRAD_ITS ---
PROCEDURE INFORMATION: Exam: CT Abdomen And Pelvis With Contrast Exam date and time: 06/01/2021 7:45 PM Age: 35 years old Clinical indication: Abdominal pain; Localized; Right lower quadrant (rlq); Prior surgery; Surgery date: 6+ months; Surgery type: C-cection, cholecysectomy, tubal ligation TECHNIQUE: Imaging protocol: Computed tomography of the abdomen and pelvis with contrast. Radiation optimization: All CT scans at this facility use at least one of these dose optimization techniques: automated exposure control; mA and/or kV adjustment per patient size (includes targeted exams where dose is matched to clinical indication); or iterative reconstruction. Contrast material: OMNIPAQUE 350; Contrast volume: 94 ml; Contrast route: INTRAVENOUS (IV); COMPARISON: CT ABDOMEN PELVIS W 01/27/2021 11:18 AM FINDINGS: Liver: Normal. No mass. Gallbladder and bile ducts: The patient is status post cholecystectomy. No biliary ductal dilatation. Pancreas: Normal. No ductal dilation. Spleen: Normal. No splenomegaly. Adrenal glands: Normal. No mass. Kidneys and ureters: Normal. No hydronephrosis. Stomach and bowel: Unremarkable. No obstruction. No mucosal thickening. Appendix: Normal appendix. Intraperitoneal space: No free intraperitoneal gas. No ascites. Vasculature: Unremarkable. No abdominal aortic aneurysm. Lymph nodes: Unremarkable. No enlarged lymph nodes. Urinary bladder: Unremarkable as visualized. Reproductive: Retroverted uterus. Involuting 2 cm right ovarian cyst. Bones/joints: Unremarkable. No acute fracture. Soft tissues: Unremarkable. IMPRESSION: 1. Involuting right ovarian cyst measuring approximately 2 cm. 2. Retroverted uterus. 3. Normal appendix. Dictated and Authenticated by: Wilfredo Cuellar MD. Ordering:MARVEL Iniguez MD
[2021-06-01 22:50] VITALS: BP 106/68; PULSE 79; RESP 18; O2SAT 97
[2021-06-01 22:53] VITALS: BP 106/68; PULSE 79; RESP 16; O2SAT 97
== END 2021-06-01 23:05 | disposition home or self-care (01) ==
PROVIDERS: Emergency Provider Physician Assistant; PCP Internal Medicine
DX: N83.291 Other ovarian cyst, right side (principal)
CPT/HCPCS: 80053; 81025; 83690; 96365; 96375; 99285; 74177; 81003; 84703; 85025; 99284; J0131; J2405; J3010; J3490

== ENCOUNTER 2022-01-27 10:32 | Outpatient (CLI) | payer OTHER, MEDICAID, SELFPAY ==
--- NOTE | 2022-01-27 10:15 | DI.RAD_ITS ---
Exam(s) XR PAIN CLINIC LUMBAR SP 2V EXAM: XR PAIN CLINIC LUMBAR SP 2V CLINICAL HISTORY: Dx: Lumbar Radiculopathy TECHNIQUE: 2D and realtime digital imaging was performed. Radiologist not present. CONTRAST MATERIAL: None. COMPARISON: No exams were available for comparison FINDINGS: Fluoroscopy was provided for pain management therapy. Please refer to procedure report or details. Cumulative dose: Ka,r=not given mGy IMPRESSION: RADIATION DOSE DELIVERED:
[2022-01-27 10:20] VITALS: BP 116/81; PULSE 89; RESP 13; O2SAT 100
[2022-01-27] MEDS: Omnipaque 240 MG/ML 50 ML BTL IJ (10:57)
[2022-01-27] MEDS: methylPREDNISolone ACETATE 80 MG/ML VIAL IJ (10:58)
[2022-01-27 11:00] VITALS: BP 116/81; PULSE 89; RESP 13; O2SAT 100
--- NOTE | 2022-02-01 14:00 | PDOC.PAIN_ITS ---
Pain Clinic Procedure Note Procedure Note Procedure Note: Lumbar Epidural Steroid Injection Procedure Note Date of service: 01/27/22 COMMENTS: I evaluated her in the office today. Her pre-procedure Pain VAS is 8/10. Dx: Lumbosacral radiculopathy Nellie Calle has been referred to the [facility] for lumbar epidural steroid injection. The patient was greeted by the nurse who verified patients name and . Patient was then taken to the fluoroscopy suite. The patient was interviewed and the medial record reviewed. There were no medical, pharmacologic, radiographic, or other structural contraindications to attempting fluoroscopically guided lumbar epidural steroid injection. Risks and expected side effects as well as potential benefits of the procedure were reviewed and voiced concerns expressed. The patient consent form was signed and witnessed. Standard patient time-out procedure was performed. The patient was placed in the prone position on the fluoroscopy table and automated blood pressure cuff and pulse oximeter applied. The skin entry point for entering/approaching the epidural space at L5-S1 and marked. Following thorough chlorhexadine preparation of the skin and draping and 1% lidocaine infiltration of the skin entry point and subcutaneous tissues, a 18 gauge Touhy needle was placed under fluoroscopic guidance and with loss of resistance technique into the epidural space. Needle tip placement and depth were aided and confirmed by fluoroscopy. There was no paresthesia or return of blood or CSF through the needle. 1 cc's of Omnipaque 240 was injected with clear epidural s pread confirmed with fluoroscopy. 80mg depomedrol was injected. The needle was flushed with 2 cc of 1% Lidocaine and removed. There was not any unusual discomfort expressed by Nellie Calle. Patient's vital signs were stable throughout the procedure and were as recorded in nursing records. Follow up plans and appointments were discussed with patient. Post procedure instruction was given as documented in nursing records and having met discharge criteria and was discharged from the [facility]. COMMENTS: If this procedure is helpful, it can be completed up to 3 times per 12 months. Post-procedure VAS was 3/10. Lenin Foster DO, [facility]
== END 2022-01-27 10:33 | disposition home or self-care (01) ==
PROVIDERS: PCP Internal Medicine; Visit Provider Preventive Medicine Occupational Medicine
DX: M54.17 Radiculopathy, lumbosacral region (principal)
CPT/HCPCS: 62323; 72100; J1040; Q9967

== ENCOUNTER → 2022-04-06 01:50 | Outpatient (CLI) | payer OTHER, MEDICAID, SELFPAY ==
--- NOTE | 2022-04-06 06:45 | DI.MRI_ITS ---
Exam(s) MR LUMBAR SPINE WO EXAM: MR LUMBAR SPINE WO CLINICAL HISTORY: worsening right leg radiculopathy,rt leg weakness and pain,m54.17. TECHNIQUE: Multiplanar multisequence MRI of the Lumbar spine was performed. COMPARISON: MR MR LUMBAR SPINE WO from 04/08/2021 FINDINGS: Conus medullaris is at normal level. There is no evidence of conus mass nor subjacent clumping of in trathecal nerve roots to suggest arachnoiditis. The distal thecal sac appears unremarkable.There is no evidence of Tarlov intrasacral cysts nor other significant findings within the sacral canal Bones:There are no fractures nor ominous osseous lesions in the lumbar vertebral bodies and visualize d sacrum. No scoliosis. With respect to the individual levels... T12-L1: Unremarkable L1-2: Normal disc height and signal. No disc herniation nor central canal stenosis.No foraminal steno sis L2-3: Normal disc height. No disc herniation nor central canal stenosis.No foraminal stenosis.No face t arthropathy. L3-4: Normal disc height. No disc herniation or central canal stenosis.No foraminal stenosis.No face t arthropathy. L4-5: Normal disc height and signal. No disc herniation or central canal stenosis nor foraminal sten osis. No significant facet arthropathy. L5-S1: Again noted is a posterolateral right disc herniation. This exhibits minimal change from the prior study.. Extends posteriorly approximately 6 millimeters and is approximately 8 millimeters wid e and descends for a small distance behind the right side of S1 for a distance of 9 millimeters, unch anged. There is no central canal stenosis at this level nor significant foraminal stenosis although this disc protrusion does again appear to contact the right sided nerve root in the right lateral rec ess at this level. This disc herniation does not extend into the exiting right neural foramen and th ere is no foraminal stenosis. No facet arthropathy evident. Soft tissues: paraspinal soft tissues appear unremarkable. IMPRESSION: 1. Posterolateral right disc protrusion at L5-S1 again noted, similar to prior study 1 year ago (March 2021) does not appear to have significantly increased or decreased in size. 2. No disc protrusions at the other levels and the other levels continue to maintain normal disc heig ht and hydration signal with no evidence of central nor foraminal stenosis at the other levels. 3. DATA REPOSITORY:
== END ==
PROVIDERS: PCP Internal Medicine; Visit Provider Preventive Medicine Occupational Medicine
DX: M51.17 Intervertebral disc disorders with radiculopathy, lumbosacral region (principal); M79.604 Pain in right leg; R53.1 Weakness
CPT/HCPCS: 72148

== ENCOUNTER 2023-07-04 08:16 | Emergency (ER) | payer OTHER, MEDICAID, SELFPAY ==
[2023-07-04 08:22] VITALS: BP 136/112; PULSE 98; RESP 16; TEMP 36.9; O2SAT 100
--- NOTE | 2023-07-04 08:45 | RT.EKG_ITS ---
APPROVED REPORT Exam: Resting ECG Reason for Exam: left chest pain Patient Location: E HR:81 bpm ECG Measurements Heart Rate 81 AXIS FL 133 P 11 QRSd 70 QRS 13 QT 355 T 7 QTc 413 Conclusion Sinus rhythm...normal P axis, V-rate 60- 99 Low voltage, precordial leads...precordial leads <1.0mV Nonspecific T abnormalities, anterior leads...T <-0.10mV, V2-V4 Physician: S1Q3T3 and T wave inversions in V1-3, however these appear to be unchanged from prior ekg from 2018. No [address] elevation, no stemi
--- NOTE | 2023-07-04 08:56 | W.ED.GENAD ---
Discharge Plan Disposition Patient Disposition: Home Condition: Good Discharge Details Clinical Impression: Back pain Primary Care Provider: Antonette Torres ED Provider: José Gonzales Home Meds and New Rx's Prescriptions: New diazepam [Valium] 5 mg tablet 5 mg PO TID PRNQty: 10 0RF lidocaine [Lidoderm] 5 % adhesive patch,medicated 1 patch Topical Q24H Qty: 15 0RF No Action epinephrine [EpiPen 2-Benny] 0.3 mg/0.3 mL auto-injector 0.3 mg IM ONCE Qty: 2 0RF pantoprazole 40 mg tablet,delayed release (DR/EC) 40 mg PO DAILY gabapentin 300 mg capsule 300 mg PO HS Patient Comments: TAKE 1 CAPSULE BY MOUTH AT BEDTIME Discharge Instructions Instructions: Back Pain (ED) Additional Instructions: At this time the CAT scan of your chest back and spine have returned normal, your EKG and blood work showed no signs of heart attack or other significant abnormality. There is concern for potential muscle spasm that could be causing the pain. Please follow-up closely with your physical therapy scheduled appointments, please follow-up closely with your primary care provider. Please continue to use a heating pad. Take the pain pills and muscle relaxants only as needed for breakthrough pain. Please use the Lidoderm patches as directed. If you notice any worsening of your symptoms, or any new symptoms such as vomiting, diarrhea, fever, chills, shortness of breath, chest pain, numbness, weakness, or fainting , please return immediately to the emergency department for reevaluation. Please follow up with your primary care provider as soon as possible for reassessment and reevaluation. As always, it was a pleasure participating in your medical care today. Stand Alone Forms: Work Release Referrals: Antonette Torres [Primary Care Provider] - Medical Decision Making 37-year-old female with a past medical history of lumbar radiculopathy, depression, anaphylactic allergy to ibuprofen and NSAIDs, presents today for evaluation of left chest and back pain. Patient states that about 3 weeks ago she had a nagging slightly irritating sensation in her left back and chest. It is not exertional, it lasted for about a week and then it went away on its own without intervention. She had been doing fine until yesterday morning when she woke up. When she woke up in the morning she had notable pain in the left back which radiated to her chest and down the left arm. She describes it as a tearing sensation, as well as a burning sensation. Pain is made worse with any movement of the arm neck or shoulder. She admits to worsening pain when she takes a deep breath. She denies any cough fever or chills. She smoked years ago, but does not smoke currently. She denies any vomiting or diarrhea. No headache. No low back pain. Her left arm feels tingly from the elbow down to the fingers. She denies any fall or trauma. She denies any drug use. She denies ever having symptoms like this before. No family history of Kwame-Danlos syndrome, Marfan syndrome, aortic dissection or aneurysm, or polycystic kidney disease. No other complaints at this time. No history of heart disease. No other modifying factors. She did take Tylenol and this did not improve her symptoms at all. Exam demonstrates tenderness for pretty much the majority of the musculature of the left upper back. Normal sensation throughout. Radial pulses +2 and symmetric bilaterally. Pain with movement of the left upper extremity which radiates to the back. Lungs are clear. Differential is broad, there is some midline thoracic spine tenderness over T1-T5. Concern for potential radiculopathy and nerve impingement causing notable muscle spasm and subsequent pain, however with the internal symptoms, and the chest pain centrally I am also concern for dissection or cardiac etiology. We will treat with Valium and Ofirmev to start, and use narcotics if needed. We will get a CTA, evaluate for concerning etiologies, monitor closely and reassess. 7 AM X-ray results and CT imaging has returned negative. No evidence of dissection, PE or other significant abnormality. Laboratory work-up is normal. No white count of significance bandemia or electrolyte abnormalities. Troponin normal, EKG unchanged. No evidence of STEMI. Patient is feeling slightly improved. At this time with the work-up her symptoms are inconsistent with ACS or other significant acute life-threatening etiology based on current clinical assessment and evaluation. Patient will be discharged home. Patient already has physical therapy referral. We will give some muscle relaxants, Lidoderm patches and [place] to go for home use. Recommend close follow-up with PCP. Discussed red flags for which to return. I have extensively reviewed the treatment plan and discharge instructions with the patient. I have addressed all patient concerns at this time. The patient was made aware of what symptoms to monitor for that would warrant a return to the emergency department. Discussed the plan with the patient, they demonstrate verbal understanding and agreement with our assessment and plan at this time. The documentation in this chart was dictated using [employer] dictation software. Please excuse any dictation errors. FINDINGS: CHEST: PULMONARY ARTERIES: There are no intraluminal filling defects to suggest acute pulmonary emboli. LUNGS: There are no infiltrates nor evidence of pulmonary infarction.. There are no pleural effusions. No pneumothorax. MEDIASTINUM: There is no hilar nor mediastinal adenopathy. Visualized thyroid unremarkable. CARDIAC: Heart size is upper normal. There is no pericardial effusion.Caliber of the thoracic aorta is within normal limits. No evidence of dissection. There is no significant shift of the interventricular septum. PARTIALLY VISUALIZED UPPERMOST ABDOMEN: Lower most image reveals some atherosclerotic involvement of the partially included abdominal aorta at the infrarenal level. This is not completely included in the field of view of this chest study. Gallbladder surgically absent. OSSEOUS: No significant osseous lesions.. IMPRESSION: 1. No evidence of acute pulmonary emboli. No evidence of pulmonary infarction.No pleural effusions. No acute lung findings 2. No evidence of aortic dissection nor pericardial effusion. Heart size normal. Discussed by phone with ER physician. FINDINGS: THORACIC SPINAL COLUMN: No evidence of fracture or listhesis. No significant disc space narrowing. No facet malalignment. No acute compromise of thoracic spinal canal. IMPRESSION: No significant osseous findings in the thoracic spinal column. HPI General Date/Time Provider Initiated Documentation: 07/04/23 08:25. HPI Narrative: 37-year-old female with a past medical history of lumbar radiculopathy, depression, anaphylactic allergy to ibuprofen and NSAIDs, presents today for evaluation of left chest and back pain. Patient states that about 3 weeks ago she had a nagging slightly irritating sensation in her left back and chest. It is not exertional, it lasted for about a week and then it went away on its own without intervention. She had been doing fine until yesterday morning when she woke up. When she woke up in the morning she had notable pain in the left back which radiated to her chest and down the left arm. She describes it as a tearing sensation, as well as a burning sensation. Pain is made worse with any movement of the arm neck or shoulder. She admits to worsening pain when she takes a deep breath. She denies any cough fever or chills. She smoked years ago, but does not smoke currently. She denies any vomiting or diarrhea. No headache. No low back pain. Her left arm feels tingly from the elbow down to the fingers. She denies any fall or trauma. She denies any drug use. She denies ever having symptoms like this before. No family history of Kwame-Danlos syndrome, Marfan syndrome, aortic dissection or aneurysm, or polycystic kidney disease. No other complaints at this time. No history of heart disease. No other modifying factors. She did take Tylenol and this did not improve her symptoms at all. Related Data Home Medications Medication Instructions Recorded Confirmed epinephrine 0.3 mg/0.3 mL 0.3 mg (0.3 mL) IM ONCE #2 ea 08/20/18 07/04/23 injection, auto-injector (EpiPen 2-Benny) gabapentin 300 mg capsule 300 mg PO HS 01/27/21 07/04/23 pantoprazole 40 mg tablet,delayed 40 mg PO DAILY 06/01/21 07/04/23 release diazepam 5 mg tablet (Valium) 5 mg PO TID PRN #10 tabs 07/04/23 lidocaine 5 % topical patch 1 patch topical Q24H #15 ea 07/04/23 (Lidoderm) Previous Rx's Medication Instructions Recorded epinephrine 0.3 mg/0.3 mL 0.3 mg (0.3 mL) IM ONCE #2 ea 08/20/18 injection, auto-injector (EpiPen 2-Benny) diazepam 5 mg tablet (Valium) 5 mg PO TID PRN #10 tabs 07/04/23 lidocaine 5 % topical patch 1 patch topical Q24H #15 ea 07/04/23 (Lidoderm) Allergies Allergy/AdvReac Type Severity Reaction Status Date / Time NSAIDS (Non-Steroidal Allergy Severe Anaphylaxis Unverified 07/04/23 08:28 Anti-Inflamma naproxen [From Aleve] Allergy Unverified 07/04/23 08:28 pineapple AdvReac Unverified 07/04/23 08:28 aleve Allergy Uncoded 07/04/23 08:28 General Stated Complaint: Nk/Back Pain HALEY: 3 Review of Systems All systems reviewed & are unremarkable except as noted in HPI and below PFSH All Active Problems (Updated 07/04/23 @ 11:10 by José Gonzales DO) Back pain (Acute) Lumbosacral radiculopathy (Acute) Low back pain with right-sided sciatica (Acute) Rupture of cyst of right ovary (Acute) Medical History Abdominal wall pain Anxiety and depression Back pain GDM, class A2 2015 Rx with Glyburide. 2hr PP GTT Headache Heartburn Hyperesthesia Insomnia Leg pain Skin anomaly Wrist pain Surgical History Cervical Procedure (~2006) LEEP section (01/17/05) Arrest of dilation at 4cm F. Oxytocin augmentation. 2899gm. Single layer closure 0-Chromic. 07/10/15 Elective RCS at 37w Pt had bilateral fimbriaectomy at time of RCS. Cholecystectomy (07/22/16) Ligation of fallopian tube (07/10/15) bilateral fimbria removal at time of RCS. Family History Mother Stroke Heart attack Diabetes Migraine Cancer Social History Smoking/Tobacco Use Status: Former Tobacco Use Second Hand Exposure: Yes Smoking risk assessment performed?: Yes Alcohol Intake: former Drug use: Never Substance use type: does not use Household members: children and other Details: Nav. Dating long time friend. 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 3.ENT: Atraumatic external nose and ears. Moist MM. Neck: Symmetric, trachea midline, No thyromegaly. Patient demonstrates good movement of cervical neck. There is no nuchal rigidity, no nuchal tenderness. Patient is able to flex the neck without any difficulty or significant pain. Negative Kernig's and Brudzinski sign. No carotid bruits. No vertebral artery bruits. 4.CVS: +S1/S2, No murmurs or gallops. Peripheral pulses 2+ and equal in all extremities. Brisk capillary refill in all extremities. Radial pulses are symmetric bilaterally 5.RESP: Unlabored respiratory effort. Clear to auscultation bilaterally. No wheezes rales or rhonchi 6.GI: Soft, Nontender/Nondistended, No hepatosplenomegaly. No guarding or rebound. 7.MSK: Normocephalic/Atraumatic, Extremities w/o deformity or ttp No cyanosis or clubbing, Normal movement of all extremities. However the patient does have notable reproduction of the left shoulder and back pain with any movement of her left arm. No redness or warmth to suggest infection. Mild midline thoracic pain, no midline cervical or lumbar pain. Notable tenderness throughout any of the muscles on the left back. Mild spasm throughout. No bruising or evidence of trauma. 8.Skin: Warm, Dry. No rashes or lesions. 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 Sensation grossly intact, no focal neurologic deficits. Sensation intact for all the fingers of the hand bilaterally. 10.Psych: (AAO) x3. Somewhat tearful Course Vital Signs Vital signs: Vital Signs Temperature 36.9 C 07/04/23 08:22 Pulse 98 H 07/04/23 08:22 Respiratory Rate 16 07/04/23 08:22 Blood Pressure 136/112 H 07/04/23 08:22 Pulse Oximetry 100 07/04/23 08:22 Temperature 36.9 C 07/04/23 08:22 Pulse 98 H 07/04/23 08:22 Respiratory Rate 16 07/04/23 08:22 Respiratory Effort Normal 07/04/23 08:25 Blood Pressure 136/112 H 07/04/23 08:22 Blood Pressure Position Sitting 07/04/23 08:22 Pulse Oximetry 100 07/04/23 08:22 Oxygen Delivery Method Room Air 07/04/23 08:22 Oxygen Flow Rate 0 07/04/23 08:22 Pain Level 8 07/04/23 08:25
[2023-07-04] MEDS: diazePAM 10 MG/2 ML SYR IVP (09:09)
[2023-07-04] MEDS: Normal Saline 500 ML IV (09:16)
[2023-07-04] MEDS: ACETAMINOPHEN 1,000 MG/100 ML BTL 400 MG IVPB (09:17)
[2023-07-04 09:26] LABS: Abs Immature Grans 0.04 10^3/uL (0.0-0.06); Absolute Eosinophil Count 0.19 10^3/uL (0.0-0.7); Absolute Monocyte Count 0.54 10^3/uL (0.1-0.8); Absolute Neutrophil Count 7.48 10^3/uL (1.2-6.7); Basophils % 0.6; Eosinophils % 1.8; HCT 45.1 % (36.0-46.0); Immature Grans % 0.4; Lymphocytes % 23.1; MCH 28.8 pg (27.0-33.0); MCHC 33.3 % (32.0-36.0); MCV 87 fL (80-95); MPV 9.2 fL (8.0-11.0); Neutrophils % 69.1; Platelet Count 308 10^3/uL (130-400); RBC 5.21 10^6/uL (3.93-5.22); RDW 12.5 % (11.7-14.6); RDW-SD 39.3 fL; WBC 10.82 10^3/uL (4.4-10.8)
[2023-07-04 09:27] LABS: Absolute Basophil Count 0.06 10^3/uL (0.0-0.2)
[2023-07-04 09:37] LABS: PTT Activated 27.1 sec (21.5-31.9); Prothrombin Time 9.7 sec (9.3-11.0)
[2023-07-04 09:48] LABS: ALT 34 U/L (14-59); AST 17 U/L (15-37); Albumin 4.2 g/dL (3.4-5.0); Alkaline Phosphatase 99 U/L (46-116); Anion Gap 7.3 mmol/L (3-11); BUN 9 mg/dL (7-18); Bilirubin, Total 0.5 mg/dL (0.2-1.0); CO2 24.7 mmol/L (21.0-32.0); CREATININE 1.2 mg/dL (0.55-1.02); Calcium 9.7 mg/dL (8.5-10.1); Chloride 101 mmol/L (98-107); Estimated GFR 59.42 (mL/min/1.73m2); Glucose 133 mg/dL (74-106); Potassium 3.7 mmol/L (3.5-5.1); Sodium 133 mmol/L (136-145); Total Protein 8.8 g/dL (6.4-8.2); Troponin I < 50 ng/L (<or=60)
--- NOTE | 2023-07-04 10:38 | DI.CT_ITS ---
Exam(s) CT THORAX CTA EXAM: CT THORAX CTA CLINICAL HISTORY: left chest and shoulder pain, r/o dissection. TECHNIQUE: Imaging Protocol: CT angiography of the chest was performed using pulmonary embolus regina col. Multi planar reconstructions were performed. CONTRAST MATERIAL: Intravenous: Omnipaque 350 Contrast volume: 100 cc COMPARISON: CT CT THORACIC SPINE RECONS from 07/04/2023 FINDINGS: CHEST: PULMONARY ARTERIES: There are no intraluminal filling defects to suggest acute pulmonary emboli. LUNGS: There are no infiltrates nor evidence of pulmonary infarction.. There are no pleural effusions . No pneumothorax. MEDIASTINUM: There is no hilar nor mediastinal adenopathy. Visualized thyroid unremarkable. CARDIAC: Heart size is upper normal. There is no pericardial effusion.Caliber of the thoracic aorta is within normal limits. No evidence of dissection. There is no significant shift of the interventri cular septum. PARTIALLY VISUALIZED UPPERMOST ABDOMEN: Lower most image reveals some atherosclerotic involvement of the partially included abdominal aorta at the infrarenal level. This is not completely included in t he field of view of this chest study. Gallbladder surgically absent. OSSEOUS: No significant osseous lesions.. IMPRESSION: 1. No evidence of acute pulmonary emboli. No evidence of pulmonary infarction.No pleural effusions. No acute lung findings 2. No evidence of aortic dissection nor pericardial effusion. Heart size normal. Discussed by phone with ER physician. RADIATION DOSE DELIVERED: Total DLP DATA REPOSITORY: All CT scans at this facility are submitted to the National Radiology Data Registry (NRDR) Dose Index Registry (DIR) with the [employer] (A[employer]). RADIATION OPTIMIZATION: All CT scans at this facility use at least one of these dose optimization te chniques: automated exposure control; mA and/or kV adjustment per patient size (includes targeted exa ms where dose is matched to clinical indication); or iterative reconstruction.
--- NOTE | 2023-07-04 10:40 | DI.CT_ITS ---
Exam(s) CT THORACIC SPINE RECONS EXAM: CT THORACIC SPINE RECONS CLINICAL HISTORY: midline thoracic pain. TECHNIQUE: Imaging Protocol: Axial computed tomography images with coronal and sagittal reformatted images were created and reviewed. CONTRAST MATERIAL: Intravenous: Omnipaque 350 Contrast volume:structured data in ml Contrast route:I V - COMPARISON: CT CT ABDOMEN PELVIS W from 06/01/2021 FINDINGS: THORACIC SPINAL COLUMN: No evidence of fracture or listhesis. No significant disc space narrowing. No facet malalignment. No acute compromise of thoracic spinal canal. IMPRESSION: No significant osseous findings in the thoracic spinal column. RADIATION DOSE DELIVERED: 466.01 mGy.cm Total DLP DATA REPOSITORY: All CT scans at this facility are submitted to the National Radiology Data Registry (NRDR) Dose Index Registry (DIR) with the [employer] (ACR). RADIATION OPTIMIZATION: All CT scans at this facility use at least one of these dose optimization te chniques: automated exposure control; mA and/or kV adjustment per patient size (includes targeted exa ms where dose is matched to clinical indication); or iterative reconstruction.
[2023-07-04] MEDS: Normal Saline - Diluent 50 ML VIAL IJ (10:42)
[2023-07-04] MEDS: Omnipaque 350 MG/ML 500 ML BTL-Imaging package IJ (10:43)
[2023-07-04] MEDS: MORPHine 4 MG/ML SYR IVP (11:19)
[2023-07-04] MEDS: Lidocaine 5% Patch 3 PATCH TP (11:20)
[2023-07-04 11:29] VITALS: BP 146/90; PULSE 65; RESP 16; O2SAT 100
== END 2023-07-04 11:30 | disposition home or self-care (01) ==
PROVIDERS: Emergency Provider Student in an Organized Health Care Education/Training Program; PCP Family Medicine
DX: M54.9 Dorsalgia, unspecified (principal); M54.2 Cervicalgia
CPT/HCPCS: 36415; 71275; 80053; 81025; 93005; 96361; 96374; 96375; 99285; 84484; 85025; 85610; 85730; 93010; 99284; J0131; J2270; J3360

== ENCOUNTER → 2023-08-08 04:11 | Outpatient (CLI) | payer OTHER, MEDICAID, SELFPAY ==
--- NOTE | 2023-08-08 | DI.MRI_ITS ---
Exam(s) MR CERVICAL SPINE WO EXAM: MR CERVICAL SPINE WO CLINICAL HISTORY: LT CERVICAL RADICULOPATHY,M54.12,NECK PAIN,M54.2,WEAKNESS LT ARM, R53.1 TECHNIQUE: Multiplanar multisequence MRI of the cervical spine was performed without intravenous con trast. COMPARISON: CT NECK WITH CONTRAST from 01/04/2016 FINDINGS: BONES: Vertebral body heights are maintained. Intervertebral disc spaces are normal. Alignment is nor mal. Bone marrow signal intensity is within normal limits. CERVICAL CORD: Craniovertebral junction is unremarkable. The cervical cord is normal size and signal intensity. SOFT TISSUES: Unremarkable. C2-3: No disc herniation or bulge is identified. No significant central spinal canal or neural forami nal stenosis. C3-4: No disc herniation or bulge is identified. No significant central spinal canal or neural forami nal stenosis C4-5: No disc herniation or bulge is identified. No significant central spinal canal or neural forami nal stenosis C5-6: No disc herniation or bulge is identified. No significant central spinal canal or neural forami nal stenosis C6-7: There is a moderate size left paracentral disc herniation extending into the left neural forame n. It causes marked left neural foraminal stenosis. No significant central spinal canal or right ne ural foraminal stenosis is present. C7-T1: No disc herniation or bulge is identified. No significant central spinal canal or neural jame inal stenosis IMPRESSION: Moderate-sized disc herniation at C6-C7 extending into the left neural foramen. There is marked left neural foraminal stenosis. DATA REPOSITORY:
== END ==
PROVIDERS: PCP Family Medicine; Visit Provider Family Medicine
DX: M50.223 Other cervical disc displacement at C6-C7 level (principal); M99.61 Osseous and subluxation stenosis of intervertebral foramina of cervical region
CPT/HCPCS: 72141

== ENCOUNTER 2023-10-06 11:20 | Outpatient (REF) | payer OTHER, MEDICAID, SELFPAY ==
[2023-10-06 14:47] LABS: HCT 44.1 % (36.0-46.0); HGB 14.7 g/dL (11.2-15.7); MCH 29.5 pg (27.0-33.0); MCHC 33.3 % (32.0-36.0); MCV 88 fL (80-95); MPV 10.1 fL (8.0-11.0); Platelet Count 285 10^3/uL (130-400); RBC 4.99 10^6/uL (3.93-5.22); RDW 12.5 % (11.7-14.6); RDW-SD 41.4 fL; WBC 9.58 10^3/uL (4.4-10.8)
[2023-10-06 14:59] LABS: Calculated LDL 129 mg/dL (<100); Cholesterol 203 mg/dL (<200); HDL Cholesterol 40 mg/dL (40-60); Triglyceride 173 mg/dL (<150)
[2023-10-06 15:39] LABS: Vitamin D 25 Total 8.2 ng/mL (30-100)
[2023-10-07 08:04] LABS: Anion Gap 10.1 mmol/L (3-11); BUN 8 mg/dL (7-18); CO2 26.9 mmol/L (21.0-32.0); Calcium 9.9 mg/dL (8.5-10.1); Chloride 101 mmol/L (98-107); Estimated GFR 73.49 (mL/min/1.73m2); Glucose 91 mg/dL (74-106); Potassium 4.5 mmol/L (3.5-5.1); Sodium 138 mmol/L (136-145)
== END 2023-10-06 11:21 | disposition home or self-care (01) ==
LOC: NCHCN 11:20
PROVIDERS: PCP Family Medicine; Visit Provider Family Medicine
DX: E55.9 Vitamin D deficiency, unspecified (principal); Z86.32 Personal history of gestational diabetes; Z13.220 Encounter for screening for lipoid disorders; Z01.818 Encounter for other preprocedural examination; Z01.812 Encounter for preprocedural laboratory examination
CPT/HCPCS: 80048; 80061; 82306; 85027; 83036

== ENCOUNTER 2024-01-23 14:15 | Outpatient (REF) | payer OTHER, MEDICAID, SELFPAY ==
--- NOTE | 2024-01-23 09:00 | SKI_PTH ---
PATIENT: Nellie Calle LOC: [facility] U#:[id number] AGE/SX: 38/F ROOM: RE01/23/[address]: Namrata Clark : 1985 BED: DIS: 01/23/2024 SPEC #: [id number] RECD: 01/23/24 18:15 STATUS: BENOIT WRIGHT #: [id number] CANDICE: 01/23/24 09:[address]: Namrata Clark DEPT: Surgical Specimen RECD BY: Geetha Johnson Tissues: 1 - SKIN BIOPSY(SHAVE/PUNCH) Procedures: SKIN LEVEL 4 Comments: [id number]
== END 2024-01-23 14:16 | disposition home or self-care (01) ==
LOC: NCHCN 14:15
PROVIDERS: PCP Family Medicine; Visit Provider Family Medicine
DX: R21 Rash and other nonspecific skin eruption (principal)
CPT/HCPCS: 88305

== ENCOUNTER 2025-01-25 14:56 | Outpatient (REF) | payer OTHER, MEDICAID, SELFPAY ==
[2025-01-25 14:18] LABS: Abs Immature Grans 0.03 10^3/uL (0.0-0.06); Absolute Basophil Count 0.05 10^3/uL (0.0-0.2); Absolute Eosinophil Count 0.16 10^3/uL (0.0-0.7); Absolute Lymphocyte Count 2.13 10^3/uL (1.2-3.4); Absolute Monocyte Count 0.44 10^3/uL (0.1-0.8); Absolute Neutrophil Count 5.34 10^3/uL (1.2-6.7); Basophils % 0.6 %; HCT 41.7 % (36.0-46.0); HGB 13.7 g/dL (11.2-15.7); Immature Grans % 0.4 %; Lymphocytes % 26.1 %; MCH 29.1 pg (27.0-33.0); MCHC 32.9 % (32.0-36.0); MCV 89 fL (80-95); MPV 9.7 fL (8.0-11.0); Monocytes % 5.4 %; Neutrophils % 65.5 %; Platelet Count 288 10^3/uL (130-400); RDW 12.2 % (11.7-14.6); RDW-SD 39.8 fL; WBC 8.15 10^3/uL (4.4-10.8)
[2025-01-25 14:29] LABS: Iron 61 ug/dL (50-170); Total Iron Binding Capacity 349 ug/dL (250-450)
[2025-01-25 14:38] LABS: Calculated LDL 101 mg/dL (<100); Cholesterol 170 mg/dL (<200); HDL Cholesterol 44 mg/dL (>or=50); TSH (W/Ref FT4) 2.49 uIU/mL (0.36-3.74); Triglyceride 127 mg/dL (<150)
== END 2025-01-25 14:57 | disposition home or self-care (01) ==
LOC: NCHCN 14:56
PROVIDERS: PCP Family Medicine; Visit Provider Family Medicine
DX: N92.0 Excessive and frequent menstruation with regular cycle (principal)
CPT/HCPCS: 80061; 83540; 83550; 84443; 85025

== ENCOUNTER 2025-02-22 20:34 | Outpatient (REF) | payer OTHER, MEDICAID, SELFPAY ==
[2025-02-22 21:37] LABS: Anion Gap 9.7 mmol/L (3-11); BUN 12 mg/dL (7-18); CO2 25.3 mmol/L (21.0-32.0); CREATININE 1.1 mg/dL (0.55-1.02); Calcium 9.3 mg/dL (8.5-10.1); Chloride 105 mmol/L (98-107); Estimated GFR 65.14 (mL/min/1.73m2); Glucose 90 mg/dL (74-106); Potassium 3.9 mmol/L (3.5-5.1); Sodium 140 mmol/L (136-145)
== END 2025-02-22 20:35 | disposition home or self-care (01) ==
LOC: NCHCN 20:34
PROVIDERS: PCP Family Medicine; Visit Provider Family Medicine
DX: Z00.00 Encounter for general adult medical examination without abnormal findings (principal)
CPT/HCPCS: 80048

== ENCOUNTER 2025-04-11 16:39 | Outpatient (REF) | payer OTHER, MEDICAID, SELFPAY ==
--- NOTE | 2025-04-11 11:20 | SKI_PTH ---
PATIENT: Nellie Calle LOC: [facility] U#:[id number] AGE/SX: 39/F ROOM: RE04/11/[address]: Namrata Clark : 1985 BED: DIS: 04/11/2025 SPEC #: [id number] RECD: 04/11/25 17:18 STATUS: BENOIT WRIGHT #: [id number] CANDICE: 04/11/25 11:[address]: Namrata Clark DEPT: Surgical Specimen RECD BY: Geetha Johnson Tissues: 1 - SKIN BIOPSY(SHAVE/PUNCH) Procedures: SKIN LEVEL 4 Comments: [id number]
== END 2025-04-11 16:40 | disposition home or self-care (01) ==
LOC: LBN 16:39
PROVIDERS: PCP Family Medicine; Visit Provider Family Medicine
DX: D23.60 Other benign neoplasm of skin of unspecified upper limb, including shoulder (principal)
CPT/HCPCS: 88305

== ENCOUNTER 2025-06-07 08:55 | Outpatient (CLI) | payer OTHER, MEDICAID, SELFPAY ==
[2025-06-10 12:31] LABS: Rubella IgG Ab (UVM) Positive (See Note)
[2025-06-11 14:06] LABS: TB Interpretation Negative (Negative); TB1 Ag minus Nil 0.01 IU/mL; TB2 Ag minus Nil 0.03 IU/mL
== END 2025-06-07 08:56 | disposition home or self-care (01) ==
LOC: LBO 08:55
PROVIDERS: PCP Family Medicine; Visit Provider Family Medicine
DX: Z11.1 Encounter for screening for respiratory tuberculosis (principal); Z78.9 Other specified health status
CPT/HCPCS: 36415; 86787; 86480; 86762; 86765

== ENCOUNTER 2025-06-14 14:10 | Outpatient (CLI) | payer OTHER, MEDICAID, SELFPAY | END 2025-06-14 14:11 | disposition home or self-care (01) | LOC: LBO 14:13 | PROVIDERS: PCP Family Medicine; Visit Provider Family Medicine | DX: Z78.9 Other specified health status (principal) | CPT/HCPCS: 36415; 86735 ==